=== PATIENT | female | born 1935 | race Caucasian/White ===

== ENCOUNTER → 2016-11-27 | Outpatient (CLI) | payer OTHER ==
[2016-07-10 15:53] VITALS: BP 148/57
--- NOTE | 2016-11-28 08:35 | MG ---
Examination: Bilateral screening mammogram. Clinical history: Routine screening. Technique: Digital CC and MLO views of both breasts were obtained. Computer aided detection analysis was performed and used during the interpretation. Comparison: 11/22/2015. Findings: The breasts are extremely dense, reducing the sensitivity of mammography. Innumerable scattered augustina gn-appearing calcifications are present in the breasts bilaterally. A skin mole is present overlying the right breast. No suspicious mass, area of architectural distortion or suspicious cluster of microcalcifications is noted. Impression: 1. No mammographic evidence of malignancy. BI-RADS category 2-benign findings. Recommend routine annual screening mammogram. Diagnostic CAD was utilized and reviewed. * 0 (ZERO) - ASSESSMENT INCOMPLETE; ADDITIONAL IMAGING IS NEEDED. * 0C - ASSESSMENT INCOMPLETE, NEEDS ADDITIONAL IMAGING EVALUATION AND/OR PRIOR MAMMOGRAMS FOR COMPAR RAFAT. * 1/1 (ONE) - NEGATIVE. * 2/II (TWO) - BENIGN FINDINGS. * 3/III (THREE) - PROBABLY BENIGN FINDING; SHORT INTERVAL FOLLOW-UP SUGGESTED. * 4/IV (FOUR) - SUSPICIOUS ABNORMALITY; BIOPSY SHOULD BE CONSIDERED. * 5/V - HIGHLY SUSPICIOUS OF MALIGNANCY; BIOPSY SHOULD BE PERFORMED. * 6/IV - KNOWN BIOPSY PROVEN MALIGNANCY-APPROPRIATE ACTION SHOULD BE TAKEN. A NEGATIVE X-RAY REPORT SHOULD NOT DELAY BIOPSY IF A DOMINANT OR CLINICALLY SUSPICIOUS MASS IS PRESENT; 4 TO 8 PERCENT OF CANCERS ARE NOT IDENTIFIED BY X-RAY. A NEGATIVE REPORT MAY REINFORCE THE CLINICAL IMPRESSION. ADENOSIS AND DENSE BREASTS MAY OBSCURE AN UNDERLYING NEOPLASM. Reported By:
== END ==
LOC: RAD 13:31
PROVIDERS: ATTEND Internal Medicine
DX: Z12.31 Encounter for screening mammogram for malignant neoplasm of breast (principal)
CPT/HCPCS: 77067

== ENCOUNTER 2017-04-02 14:11 | Emergency (ER) | payer OTHER ==
[2017-04-02 14:18] VITALS: BP 125/55; BMI 26.4
[2017-04-02] MEDS ORDERED: DEMEROL INJ IM ONE (15:58)
[2017-04-02] MEDS ORDERED: ZOFRAN INJ 4 MG VIAL IM ONE (15:59)
[2017-04-02] MEDS ORDERED: ZOFRAN INJ 4 MG VIAL ONE (16:01)
[2017-04-02] MEDS ORDERED: DEMEROL INJ ONE (16:02)
--- NOTE | 2017-04-02 16:52 | CT ---
HISTORY: Frequent falls and dizziness Study: CT brain without contrast Comparison: June 07, 2015 Technique: Multiple axial images of the brain were obtained from the skull base to the vertex without administra tion of IV contrast. Sagittal and coronal reformations were provided. Findings: There is no interval change. There are prominent subarachnoid spaces. No acute intraparenchymal hemorrhage or mass can be identified. No extra-axial fluid collections are seen. No alteration in the attenuation of the brain parenchyma can be identified to suggest acute o r subacute ischemic change. The ventricular system is symmetric and nondilated. The extracranial st ructures are grossly unremarkable. The mastoid air cells are clear as well as the paranasal sinuses. IMPRESSION: 1. No acute intracranial process can be identified. Reported By:
--- NOTE | 2017-04-02 17:15 | DR.GENAD ---
HPI - PCP Primary Care Physician: renzo kennedy - Complaint/Symptoms Chief Complaint:: patient stated she has had a head ache since yesterday and it has been bad. her doctor told her to come to the er. patient stated she has taken tylenol and tramodol and it has not helped her headache. - Source History Provided: Patient - Mode of Arrival Mode of Arrival: Ambulatory - Timing Onset of Chief Complaint: 04/01/17 PMH - PMH Past Medical History: Yes Past Medical History: Arthritis, Depression, Diabetes, Dyslipidemia, GERD, Gout , Headaches, Hypertension, Kidney Stones Past Surgical History: Yes Surgical History: Cholecystectomy, Hysterectomy, Ortho Surgery, Thyroidectomy - Family History History of Family Medical Conditions: Yes Family Medical History: Cancer, Heart Failure - Social History Does patient currently use any type of tobacco product: No Have you used tobacco products in the last 12 months: No Type of Tobacco Use: None Does any household member use tobacco: No Alcohol Use: None Do you use any recreational Drugs:: No Lives With: Family Lives Where: Home - infectious screening In the last 2 months have you had wt loss of >10#?: NO Have you had fever, night sweats or hemotysis?: No Have you traveled outside the country in the last 6 months?: No Isolation: Standard ROS - Review of Systems Eyes: No Symptoms Reported ENTM: No Symptoms Reported Respiratoy: No Symptoms Reported Cardiovascular: No Symptoms Reported Gastrointestinal/Abdominal: No Symptoms Reported Genitourinary: No Symptoms Reported Neurological: No Symptoms Reported Musculoskeletal: No Symptoms Reported Integumentary: No Symptoms Reported Hematologic/Lymphatic: No Symptoms Reported Endocrine: No Symptoms Reported Psychiatric: No Symptoms Reported All Other Systems: Reviewed and Negative PE - Vital Signs Vitals: Temperature 98.7 F Pulse Rate 65 Respiratory Rate 18 Blood Pressure [Left Arm] 190/78 Blood Pressure 125/55 O2 Sat by Pulse Oximetry 99 - General General Appearance: Alert, In No Apparent Distress - Head Head Exam: Normal Inspection, Atraumatic - Eyes Eye exam: Normal Appearance, PERRL, EOMI - ENT ENT Exam: Normal Exam External Ear Exam: Normal External Inspection TM/Canal Exam: Bilateral Normal Nose Exam: Normal Nose Exam Mouth Exam: Normal Inspection Throat Exam: Normal Inspection - Neck Neck Exam: Normal Inspection - Chest Chest Inspection: Normal Inspection - Respiratory Respiratory Exam: Normal Lung Sounds Bilat Respiratory Exam: Bilateral Clear to Auscultation - Cardiovascular Cardiovascular Exam: Regular Rate - Abdominal Exam Abdominal Exam: Normal Inspection Abdominal Tenderness: negative: RUQ, RLQ, LUQ, LLQ, Epigastrium, Suprapubic, Diffuse, Mild, Moderate, Severe, Other - Extremities Extremities Exam: Normal Inspection, Full ROM - Back Back Exam: Normal Inspection, Full ROM - Neurologic Neurological Exam: Alert, Oriented X3, CN II-XII Intact - Psychiatric Psychiatric Exam: Normal Affect, Normal Mood - Skin Skin Exam: Warm, Dry, Intact Course - Reevaluation 1st: Improved ROR - Labs Reviewed Result Diagrams: 04/02/17 17:45 04/02/17 17:45 Laboratory: WBC 7.8 X10^3/uL (3.6-10.0) 04/02/17 17:45 RBC 4.42 X10^6/uL (3.5-5.4) 04/02/17 17:45 Hgb 13.9 g/dL (12.0-16.0) 04/02/17 17:45 Hct 40.7 % (36.0-47.0) 04/02/17 17:45 MCV 92.1 fL (80.0-100.0) 04/02/17 17:45 MCH 31.3 pg (27.0-34.0) 04/02/17 17:45 MCHC 34.0 g/dL (33.0-35.0) 04/02/17 17:45 RDW 14.0 % (11.6-16.5) 04/02/17 17:45 Plt Count 142 X10^3/uL (150.0-450.0) L 04/02/17 17:45 Plt Count Comment Adequate (ADEQUATE) 04/02/17 17:45 MPV 8.3 fL (7.4-11.0) 04/02/17 17:45 Neut % 48.1 % (42.0-75.0) 04/02/17 17:45 Lymph % 33.9 % (21.0-51.0) 04/02/17 17:45 [place] % 12.1 % (0.0-13.0) 04/02/17 17:45 Eos % 5.3 % (0.9-2.9) H 04/02/17 17:45 Baso % 0.6 % (0.2-1.0) 04/02/17 17:45 Neut # 3.4 x10^3/uL (2.2-4.8) 04/02/17 17:45 Lymph # 2.4 X10^3/uL (1.3-2.9) 04/02/17 17:45 [place] # 0.9 x10^3/uL (0.3-0.8) H 04/02/17 17:45 Eos # 0.4 x10^3/uL (0.0-0.2) H 04/02/17 17:45 Baso # 0.0 X10^3/uL (0.0-0.1) 04/02/17 17:45 Absolute Nucleated RBC 0.1 /100WBC 04/02/17 17:45 Plt Morphology Comment Normal (NORMAL) 04/02/17 17:45 RBC Morphology Normal (NORMAL) 04/02/17 17:45 Sodium 140 mmol/L (136-145) 04/02/17 17:45 Corrected Sodium TNP 04/02/17 17:45 Potassium 4.4 mmol/L (3.5-5.1) 04/02/17 17:45 Chloride 104 mmol/L (98-107) 04/02/17 17:45 Carbon Dioxide 27.4 mmol/L (21-32) 04/02/17 17:45 BUN 30 mg/dL (7-18) H 04/02/17 17:45 Creatinine 1.12 mg/dL (0.55-1.02) H 04/02/17 17:45 Est GFR (MDRD) Af Amer > 60 (>60) 04/02/17 17:45 Est GFR (MDRD) Non-Af 50 (>60) L 04/02/17 17:45 Glucose 91 mg/dL (65-99) 04/02/17 17:45 Calcium 9.2 mg/dL (8.5-10.1) 04/02/17 17:45 - XRAY XRAY Interpreted by: Radiologist (CT Brain: No acute abnormality noted) - Diagnosis Discharge Problem: Headache Qualifiers: Headache type: unspecified Headache chronicity pattern: acute headache Intractability: not intractable Qualified Code(s): R51 - Headache - Discharge Plan Condition: Stable Prescriptions: Tramadol HCl 50 mg PO Q4-6H PRN #14 tablet PRN Reason: - Follow ups/Referrals Follow ups/Referrals: DUGLAS KENNEDY [Primary Care Provider] - 3 days - Instructions Instructions: Headache and Arthritis
[2017-04-02 18:01] LABS: BASOPHILS % (AUTO) 0.6 % (0.2-1.0); EOSINOPHILS # (AUTO) 0.4 x10^3/uL (0.0-0.2); EOSINOPHILS % (AUTO) 5.3 % (0.9-2.9); HEMATOCRIT 40.7 % (36.0-47.0); HEMOGLOBIN 13.9 g/dL (12.0-16.0); LYMPHOCYTES # (AUTO) 2.4 X10^3/uL (1.3-2.9); LYMPHOCYTES % (AUTO) 33.9 % (21.0-51.0); MEAN CORPUSCULAR HEMOGLOBIN 31.3 pg (27.0-34.0); MEAN CORPUSCULAR VOLUME 92.1 fL (80.0-100.0); MEAN PLATELET VOLUME 8.3 fL (7.4-11.0); MONOCYTES # (AUTO) 0.9 x10^3/uL (0.3-0.8); MONOCYTES % (AUTO) 12.1 % (0.0-13.0); NEUTROPHILS # (AUTO) 3.4 x10^3/uL (2.2-4.8); NEUTROPHILS % (AUTO) 48.1 % (42.0-75.0); PLATELET COUNT 142 X10^3/uL (150.0-450.0); RED BLOOD COUNT 4.42 X10^6/uL (3.5-5.4)
[2017-04-02] MEDS ORDERED: ULTRAM PO ONE (18:02)
[2017-04-02] MEDS ORDERED: ULTRAM ONE (18:03)
[2017-04-02 18:05] LABS: BLOOD UREA NITROGEN 30 mg/dL (7-18); CALCIUM 9.2 mg/dL (8.5-10.1); CARBON DIOXIDE 27.4 mmol/L (21-32); CHLORIDE 104 mmol/L (98-107); CREATININE 1.12 mg/dL (0.55-1.02); SODIUM 140 mmol/L (136-145); eGFR BLACK RACES > 60 (>60); eGFR NON BLACK RACES 50 (>60)
[2017-04-02 18:32] LABS: WHITE BLOOD COUNT 7.8 X10^3/uL (3.6-10.0)
[2017-04-02 18:33] LABS: PLATELET MORPHOLOGY COMMENT NORMAL (NORMAL)
== END 2017-04-02 18:45 | disposition home or self-care (01) ==
LOC: ER 14:22
DX: R51 Headache (principal)
CPT/HCPCS: 36415; 70450; 80048; 85025; 96372; 99283; J2175; J2405

== ENCOUNTER 2019-05-24 10:26 | Observation (INO) ==
[2019-05-24 10:40] VITALS: BMI 25.8
--- NOTE | 2019-05-24 10:55 | ED.ABDFE ---
HPI - PCP Primary Care Physician: MUNA BELLO CREW CHIEF - Complaint Chief Complaint Doctors Comments: Patient is complaining of LUQ pain that goes to her back and upper stomach for the past 24 hours getting progressively worst. Patient states she tried to take the pain at home but it got worst this morning with the pain 9 of 10. She is a patient of Muna Bello and states she sees a cardi ologist because she wants all her patients to go to a mlt. Patient denies problems with her heart. States she fell and bruised her left lower leg few weeks ago. she has had a cough but it is not productive. she denies dysuria, hematuria or any recent trauma. states she injured her left leg and she is going to wound care for her left leg and they say it is healing well without infection. Chief Complaint:: PT C/O PAIN TO HER LEFT AXILLA THAT STARTED ON 03/23/19 AND THAN THIS AM THE PAIN STARTED TO RADIATE TO HER L, AND R UPPE QUAD ,, PT DENIES ANY TRAUMA ,,BR - Nurses notes reviewed Nurses Notes Review: Yes - Source History Provided: Patient - Mode of arrival Mode of Arrival: Ambulatory - Timing Onset of Chief Complaint: 05/23/19 Came on: Gradually - Duration Duration: Constant How lon Duration: Days - Location Location: LUQ, Epigastric - Severity Severity: Moderate - Quality Quality: Aching, Sharp - Context Onset: Gradually - Modifying Worsening Factors: Nothing Improving Factors: Nothing - Associated signs and symptoms Associated Signs and Symptoms: None - Time seen Time Seen by Provider: 05/24/19 10:52 PMH - PMH Past Medical History: Yes Past Medical History: Hypertension, Diabetes, Hypothyroidism Past Surgical History: Yes Surgical History: Cholecystectomy, Hysterectomy, Thyroidectomy, Unknown - Family History History of Family Medical Conditions: Yes Family Medical History: Cancer, Hypertension - Social History Does patient currently use any type of tobacco product: No Have you used tobacco products in the last 12 months: No Type of Tobacco Use: None Does any household member use tobacco: No Alcohol Use: None Do you use any recreational Drugs:: No Lives With: Family Lives Where: Home - infectious screening In the last 2 months have you had wt loss of >10#?: NO Have you had fever, night sweats or hemotysis?: No Have you traveled outside the country in the last 6 months?: No Isolation: Standard PE - General Limitations: No Limitations General Appearance: Alert, In Distress (moderate to severe) - Head Head Exam: Normal Inspection, Atraumatic, Normocephalic - Eyes Eye exam: Normal Appearance, PERRL, EOMI. negative: Scleral Icterus, Conjunctival Injection, Nystagmus, Miosis, Mydrasis, Periorbital Swelling, Periorbital Tenderness, Other - ENT ENT Exam: Normal Exam, Normal Oropharynx, Normal External Ear Exam, Mucous Membranes Moist (dentures), TM's Normal Bilaterally - Neck Neck Exam: Normal Inspection, Full ROM, Trachea Midline. negative: Tenderness, Meningismus, Lymphadenopathy, Thyromegaly, Other - Chest Chest Inspection: Normal Inspection, Symmetric Chest Wall Rise. negative: Tenderness, Rash, Abscess, Other - Respiratory Respiratory Exam: Normal Lung Sounds Bilat Respiratory Exam: Bilateral Clear to Auscultation - Cardiovascular Cardiovascular Exam: Irregular Rhythm, Normal Heart Sounds, Systolic Murmur - Abdominal Exam Abdominal Exam: Normal Inspection, Normal Bowel Sounds, Soft, Tenderness (epigastric tenderness), Guarding, Dimnished Bowel Sounds Abdominal Tenderness: LUQ, Epigastrium, Moderate - Rectal Rectal Exam: Deferred - Back Back Exam: Normal Inspection, Full ROM. negative: Tenderness, (R) CVA Tenderness, (L) CVA Tenderness, Muscle Spasm, Paraspinal Tenderness, Vertebral Tenderness, Rashes, (R) Sciatic Notch Tenderness, (L) Sciatic Notch Tendern, (R) Straight Leg Raise, (L) Straight Leg Raise, Other - Extremeties Extremities Exam: Normal Inspection, Full ROM, Normal Capillary Refill. negative: Tenderness, Edema, Joint Swelling, Calf Tenderness, Other - External Exam: Female: Deferred : Speculum Exam (Female): Deferred : Bimanual Exam (female): Deferred - Neurologic Neurological Exam: Alert, Oriented X3, CN II-XII Intact, Reflexes Normal. negative: Normal Gait (gait not tested) - Psychiatric Psychiatric Exam: Normal Affect, Normal Mood. negative: Depressed, Agitated, Anxious, Flat Affect, Manic, Homicidal Ideation, Suicidal Ideation, Other - Skin Skin Exam: Warm, Dry, Intact, Normal Color - Vital Signs Vitals: Temperature 97.2 F Pulse Rate 64 Respiratory Rate 33 Blood Pressure [Left Arm] 128/87 Blood Pressure 178/77 O2 Sat by Pulse Oximetry 97 Course - Reevaluation 1st: Improved - Consultation Called: 14:24 Call Returned: 14:24 (Dr. Morris to admit) - Education/Counseling Education/Counseling: Patient, Family Educated On: Treatment, Diagnosis, Needs for Follow Up ROR - Labs Reviewed Laboratory Results Reviewed?: Yes (All labs and x-ray results reviewed and discussed with patient and family) Result Diagrams: 05/24/19 11:27 05/24/19 11:27 - XRAY XRAY Interpreted by: Radiologist (CT abdomen and pelvis: Small left plelural effusion. Right basilar atelectasis. No acute abdominal or pelvis abnormality) - Labs Reviewed Laboratory: WBC 8.8 X10^3/uL (3.6-10.0) 05/24/19 11:27 RBC 3.76 X10^6/uL (3.5-5.4) 05/24/19 11:27 Hgb 12.6 g/dL (12.0-16.0) 05/24/19 11:27 Hct 36.3 % (36.0-47.0) 05/24/19 11:27 MCV 96.5 fL (80.0-100.0) 05/24/19 11:27 MCH 33.6 pg (27.0-34.0) 05/24/19 11:27 MCHC 34.8 g/dL (33.0-35.0) 05/24/19 11:27 RDW 14.7 % (11.6-16.5) 05/24/19 11:27 Plt Count 266 X10^3/uL (150.0-450.0) 05/24/19 11:27 MPV 8.1 fL (7.4-11.0) 05/24/19 11:27 Neut % (Auto) 74.6 % (42.0-75.0) 05/24/19 11:27 Lymph % (Auto) 14.0 % (21.0-51.0) L 05/24/19 11:27 [place] % (Auto) 10.2 % (0.0-13.0) 05/24/19 11:27 Eos % (Auto) 0.6 % (0.9-2.9) L 05/24/19 11:27 Baso % (Auto) 0.6 % (0.2-1.0) 05/24/19 11:27 Neut # (Auto) 6.6 x10^3/uL (2.2-4.8) H 05/24/19 11:27 Lymph # (Auto) 1.2 X10^3/uL (1.3-2.9) L 05/24/19 11:27 [place] # (Auto) 0.9 x10^3/uL (0.3-0.8) H 05/24/19 11:27 Eos # (Auto) 0.0 x10^3/uL (0.0-0.2) 05/24/19 11:27 Baso # (Auto) 0.1 X10^3/uL (0.0-0.1) 05/24/19 11:27 Absolute Nucleated RBC 0.1 /100WBC 05/24/19 11:27 PT 13.1 SECONDS (11.8-14.3) 05/24/19 11:27 INR Target Range - 05/24/19 11:27 INR 1.03 (0.8-1.3) 05/24/19 11:27 APTT 33.5 SECONDS (22.9-36.5) 05/24/19 11:27 PTT Comment - 05/24/19 11:27 D-Dimer 613 ng/mL (0-400) H* 05/24/19 11:27 Sodium 135 mmol/L (136-145) L 05/24/19 11:27 Corrected Sodium 138 mmol/L (136-145) 05/24/19 11:27 Potassium 4.4 mmol/L (3.5-5.1) 05/24/19 11:27 Chloride 97 mmol/L (98-107) L 05/24/19 11:27 Carbon Dioxide 32.2 mmol/L (21-32) H 05/24/19 11:27 BUN 27 mg/dL (7-18) H 05/24/19 11:27 Creatinine 1.15 mg/dL (0.55-1.02) H 05/24/19 11:27 Est GFR (MDRD) Af Amer 58 (>60) L 05/24/19 11:27 Est GFR (MDRD) Non-Af 48 (>60) L 05/24/19 11:27 Glucose 225 mg/dL (65-99) H 05/24/19 11:27 Calcium 9.3 mg/dL (8.5-10.1) 05/24/19 11:27 Corrected Calcium TNP 05/24/19 11:27 Magnesium 1.9 mg/dL (1.7-2.9) 05/24/19 11:27 Total Bilirubin 0.40 mg/dL (0.2-1.0) 05/24/19 11:27 AST 12 Units/L (15-37) L 05/24/19 11:27 ALT 6 Units/L (12-78) L 05/24/19 11:27 Alkaline Phosphatase 162 Units/L (46-116) H 05/24/19 11:27 Creatine Kinase 38 Units/L (26-192) 05/24/19 11:27 CK-MB (CK-2) < 1.0 ng/mL (0-4.0) 05/24/19 11:27 CK/CKMB % Calc 2.6 % (<4) 05/24/19 11:27 Troponin I < 0.02 ng/mL (0-1.5) 05/24/19 11:27 B-Natriuretic Peptide 190 pg/mL (0-79) H 05/24/19 12:15 Total Protein 7.3 g/dL (6.4-8.2) 05/24/19 11:27 Albumin 3.7 g/dL (3.4-5.0) 05/24/19 11:27 Globulin 3.6 g/dL (2.5-4.5) 05/24/19 11:27 Albumin/Globulin Ratio 1.0 Ratio (1.1-2.1) L 05/24/19 11:27 Amylase 39 Units/L (25-115) 05/24/19 11:27 Lipase 72 Units/L (73-393) L 05/24/19 11:27 Opioid - Opioid Risk Tool Age (Enrique box if 16-45): No History of Preadolescent Sexual Abuse: No Total: 0 Total Score Risk Category: Low Risk - Diagnosis Discharge Problem: Intractable abdominal pain, Chest pain in adult, Pleural effusion, left, Cardiomegaly, Interstitial edema Diabetes mellitus type 1, uncontrolled Qualifiers: Glycemic state: with hyperglycemia Qualified Code(s): E10.65 - Type 1 diabetes mellitus with hyperglycemia Chronic kidney disease (CKD) Qualifiers: Chronic kidney disease stage: stage 3 (moderate) Qualified Code(s): N18.3 - Chronic kidney disease, stage 3 (moderate) Cardiac arrhythmia Qualifiers: Arrhythmia type: atrial fibrillation Blister of left lower leg Qualifiers: Encounter type: subsequent encounter Qualified Code(s): S80.822D - Blister (nonthermal), left lower leg, subsequent encounter - Discharge Plan Disposition: ADMITTED INPATIENT Condition: Stable - Follow ups/Referrals Follow ups/Referrals: DUGLAS BELLO [Primary Care Provider] - 3 days - Instructions
[2019-05-24] MEDS ORDERED: ASPIRIN PO ONE (11:08)
[2019-05-24] MEDS ORDERED: NS 1000 ML 1,000 ML ONE (11:12)
[2019-05-24] MEDS ORDERED: ASPIRIN ONE (11:12)
[2019-05-24] MEDS: NS 1000 ML 1,000 ML IV SCH (11:30)
[2019-05-24 11:49] LABS: BASOPHILS # (AUTO) 0.1 X10^3/uL (0.0-0.1); BASOPHILS % (AUTO) 0.6 % (0.2-1.0); EOSINOPHILS % (AUTO) 0.6 % (0.9-2.9); HEMATOCRIT 36.3 % (36.0-47.0); HEMOGLOBIN 12.6 g/dL (12.0-16.0); LYMPHOCYTES # (AUTO) 1.2 X10^3/uL (1.3-2.9); MEAN CORPUSCULAR HEMOGLOBIN 33.6 pg (27.0-34.0); MEAN CORPUSCULAR HGB CONC 34.8 g/dL (33.0-35.0); MEAN CORPUSCULAR VOLUME 96.5 fL (80.0-100.0); MEAN PLATELET VOLUME 8.1 fL (7.4-11.0); MONOCYTES # (AUTO) 0.9 x10^3/uL (0.3-0.8); MONOCYTES % (AUTO) 10.2 % (0.0-13.0); NEUTROPHILS # (AUTO) 6.6 x10^3/uL (2.2-4.8); NEUTROPHILS % (AUTO) 74.6 % (42.0-75.0); PLATELET COUNT 266 X10^3/uL (150.0-450.0); RED BLOOD COUNT 3.76 X10^6/uL (3.5-5.4); RED CELL DISTRIBUTION WIDTH 14.7 % (11.6-16.5); WHITE BLOOD COUNT 8.8 X10^3/uL (3.6-10.0)
[2019-05-24] MEDS ORDERED: MORPHINE SULFATE INJ 2 MG INJ IVP ONE (11:54)
[2019-05-24] MEDS ORDERED: ZOFRAN INJ 4 MG VIAL IVP ONE (11:55)
[2019-05-24] MEDS ORDERED: ZOFRAN INJ 4 MG VIAL ONE (11:56)
[2019-05-24] MEDS ORDERED: MORPHINE SULFATE INJ 2 MG INJ ONE (11:57)
[2019-05-24 12:42] LABS: BLOOD UREA NITROGEN 27 mg/dL (7-18); CALCIUM 9.3 mg/dL (8.5-10.1); CARBON DIOXIDE 32.2 mmol/L (21-32); CHLORIDE 97 mmol/L (98-107); COR NA(FOR HYPERGLY) 138 mmol/L (136-145); CREATININE 1.15 mg/dL (0.55-1.02); SODIUM 135 mmol/L (136-145); TROPONIN I < 0.02 ng/mL (0-1.5); eGFR NON BLACK RACES 48 (>60)
[2019-05-24 12:46] LABS: ALANINE AMINOTRANSFERASE 6 Units/L (12-78); ALBUMIN 3.7 g/dL (3.4-5.0); ALKALINE PHOSPHATASE 162 Units/L (46-116); AMYLASE 39 Units/L (25-115); ASPARTATE AMINO TRANSFERASE 12 Units/L (15-37); CKMB % 2.6 % (<4); CREATINE KINASE 38 Units/L (26-192); CREATINE KINASE MB < 1.0 ng/mL (0-4.0); LIPASE 72 Units/L (73-393); MAGNESIUM 1.9 mg/dL (1.7-2.9); TOTAL PROTEIN 7.3 g/dL (6.4-8.2)
--- NOTE | 2019-05-24 13:19 | RAD ---
HISTORYChest pain.STUDYCHEST, 1 VIEWCOMPARISONJuly 2017.FINDINGSThe trachea is midline. The cardiac silhouette is enlarged. There is some central pulmonary vascular congestion. There may be some mild perihilar and infrahilar interstitial prominence suggestive of mild interstitial edema. The lungs are clear of consolidation, significant effusion or pneumothorax. The bony thorax is unremarkable.IMPRESSIONCardiomegaly with central pulmonary vascular congestion and mild interstitial edema.Electronically signed by: DARYN NIEVES (May 24, 2019 13:18:12)
--- NOTE | 2019-05-24 13:30 | CT ---
HISTORYLUQ PAIN; LEFT CVA PAIN HTN, DM, CHOLECYSTECTOMY, HYSTERECTOMY, THYROIDECTOMYSTUDYABDOMEN/PELVIS W/O CONCOMPARISONNone.TECHNIQUEMultiple axial images of the abdomen and pelvis were obtained from the lung bases to the pubic symphysis without the administration of IV contrast. Sagittal and coronal reformatted images were performed. Automated exposure control (AEC) was utilized to adjust the MA and/or kV.FINDINGSThere is a small left-sided pleural effusion. There is adjacent compressive atelectasis or airspace opacity in the left lower lobe. There is atelectasis in the right lower lobe.CT abdomen: Several calcified granulomas are noted in the liver. The pancreas is normal in appearance without evidence for mass, cyst or significant pancreatic duct dilation. There is no significant peripancreatic inflammatory stranding. The gallbladder is surgically absent. Surgical clips are noted in the gallbladder fossa. Both adrenal glands are normal in appearance. There is no evidence of nephrolithiasis or hydronephrosis.The stomach is normal in appearance. The small bowel is normal in appearance, without evidence of bowel wall thickening or small bowel obstruction. The terminal ileum and cecum are normal. The appendix is normal in appearance. The ascending and transverse colon are within normal limits. The descending colon is normal in appearance.CT pelvis: The sigmoid colon is normal in appearance. The rectum is normal. The urinary bladder is normal. No abnormal fluid collections are identified in the pelvis.IMPRESSION1. No evidence of acute abdominal or pelvic abnormality.2. Small left pleural effusion with adjacent airspace disease versus atelectasis. Right basilar atelectasis.Electronically signed by: DARYN NIEVES (May 24, 2019 13:28:36)
[2019-05-24] MEDS ORDERED: LASIX IVP STA (13:57)
[2019-05-24] MEDS ORDERED: LASIX ONE (14:11)
[2019-05-24] MEDS ORDERED: PEPCID 20 MG IV PREMIX* 20 MG/50 ML BAG IV PRN (14:27)
[2019-05-24] MEDS ORDERED: MORPHINE SULFATE INJ 2 MG INJ IVP PRN (14:27)
[2019-05-24] MEDS ORDERED: ZOFRAN INJ 4 MG VIAL IVP PRN (14:27)
[2019-05-24] MEDS ORDERED: VITAMIN D (1.25MG) PO SCH (14:30)
[2019-05-24] MEDS ORDERED: HumuLIN R SUBCUT PRN (14:46)
[2019-05-24 15:29] LABS: BILIRUBIN,URINE NEGATIVE (NEGATIVE); BLOOD/HEMOGLOBIN,URINE 1+ (NEGATIVE); GLUCOSE, URINE NEGATIVE (NEGATIVE); KETONES,URINE NEGATIVE (NEGATIVE); LEUKOCYTE ESTERASE ,URINE NEGATIVE (NEGATIVE); NITRITES,URINE NEGATIVE (NEGATIVE); PROTEIN,URINE 1+ (NEGATIVE); UROBILINOGEN,URINE NORMAL (NORMAL)
[2019-05-24 15:39] LABS: APPEARANCE,URINE CLEAR (CLEAR); COLOR,URINE YELLOW (YELLOW); SQUAMOUS EPITHELIAL CELL,UR FEW /HPF (NEGATIVE)
[2019-05-24 15:40] LABS: BACTERIA,URINE NEGATIVE /HPF (NEGATIVE)
[2019-05-24] MEDS ORDERED: BACTROBAN TOPICAL OINT ONE (15:54)
[2019-05-24] MEDS: BACTROBAN TOPICAL OINT TOP SCH ×2 (17:00→20:31)
[2019-05-24 17:22] LABS: CKMB % 3.1 % (<4); CREATINE KINASE 32 Units/L (26-192); CREATINE KINASE MB < 1.0 ng/mL (0-4.0); TROPONIN I < 0.02 ng/mL (0-1.5)
[2019-05-24] MEDS ORDERED: SNACK - Diabetic Appropriate PO SCH (20:00)
[2019-05-24] MEDS: TAMBOCOR PO SCH (20:28)
[2019-05-24] MEDS: SINEMET CR 50/200 MG PO SCH (21:00)
[2019-05-24] MEDS: MYSOLINE TAB 250 MG PO SCH (21:00)
[2019-05-24] MEDS: AMANTADINE HCL 100 MG CAP PO SCH (21:25)
[2019-05-25] LABS: CKMB % 4.2 % (<4); CREATINE KINASE 24 Units/L (26-192); CREATINE KINASE MB < 1.0 ng/mL (0-4.0); TROPONIN I < 0.02 ng/mL (0-1.5)
[2019-05-25] MEDS: NS 1000 ML 1,000 ML IV SCH (03:00)
[2019-05-25] MEDS: MYSOLINE TAB 250 MG PO SCH (05:46)
[2019-05-25] MEDS: SINEMET CR 50/200 MG PO SCH (05:47)
[2019-05-25 06:07] LABS: BASOPHILS % (AUTO) 0.6 % (0.2-1.0); EOSINOPHILS # (AUTO) 0.1 x10^3/uL (0.0-0.2); EOSINOPHILS % (AUTO) 1.8 % (0.9-2.9); HEMATOCRIT 32.9 % (36.0-47.0); HEMOGLOBIN 11.3 g/dL (12.0-16.0); LYMPHOCYTES # (AUTO) 1.3 X10^3/uL (1.3-2.9); LYMPHOCYTES % (AUTO) 20.6 % (21.0-51.0); MEAN CORPUSCULAR HGB CONC 34.3 g/dL (33.0-35.0); MEAN CORPUSCULAR VOLUME 96.1 fL (80.0-100.0); MEAN PLATELET VOLUME 7.7 fL (7.4-11.0); MONOCYTES # (AUTO) 0.8 x10^3/uL (0.3-0.8); MONOCYTES % (AUTO) 12.4 % (0.0-13.0); NEUTROPHILS # (AUTO) 4.2 x10^3/uL (2.2-4.8); NEUTROPHILS % (AUTO) 64.6 % (42.0-75.0); PLATELET COUNT 210 X10^3/uL (150.0-450.0); RED BLOOD COUNT 3.43 X10^6/uL (3.5-5.4); RED CELL DISTRIBUTION WIDTH 14.2 % (11.6-16.5); WHITE BLOOD COUNT 6.5 X10^3/uL (3.6-10.0)
[2019-05-25 06:24] LABS: ALANINE AMINOTRANSFERASE < 6 Units/L (12-78); ALBUMIN 2.8 g/dL (3.4-5.0); ALKALINE PHOSPHATASE 116 Units/L (46-116); ASPARTATE AMINO TRANSFERASE 10 Units/L (15-37); BLOOD UREA NITROGEN 22 mg/dL (7-18); CALCIUM 8.5 mg/dL (8.5-10.1); CARBON DIOXIDE 29.5 mmol/L (21-32); CHLORIDE 100 mmol/L (98-107); COR CA(FOR HYPOALB) 9.5 mg/dL (8.5-10.1); COR NA(FOR HYPERGLY) 137 mmol/L (136-145); CREATININE 0.99 mg/dL (0.55-1.02); SODIUM 136 mmol/L (136-145); TOTAL PROTEIN 5.9 g/dL (6.4-8.2); eGFR NON BLACK RACES 57 (>60)
[2019-05-25] MEDS ORDERED: SYNTHROID 100 mcg TAB PO SCH (07:00)
[2019-05-25] MEDS: TAMBOCOR PO SCH (08:48)
[2019-05-25] MEDS: AMANTADINE HCL 100 MG CAP PO SCH (08:48)
[2019-05-25] MEDS ORDERED: PATIENT'S HOME MEDICATION (Valsartan-Hydrochlorothiazide 1 TAB) PO SCH (09:00)
[2019-05-25] MEDS ORDERED: LEVOTHYROXINE 200 MCG PO SCH (09:00)
[2019-05-25] MEDS ORDERED: ROCEPHIN VIAL 1 GRAM 1 G in NS 100 ML IV + SPIKE MINIBAG* 100 ML IV SCH (09:00)
[2019-05-25] MEDS ORDERED: HYDROCHLOROTHIAZIDE 12.5 MG CAP PO SCH (09:00)
[2019-05-25] MEDS ORDERED: VITAMIN D (1.25MG) PO SCH (09:00)
[2019-05-25] MEDS ORDERED: DIOVAN TAB 80 MG PO SCH (09:00)
[2019-05-25] MEDS: BACTROBAN TOPICAL OINT TOP SCH (09:23)
[2019-05-25 11:35] VITALS: BP 153/65
--- NOTE | 2019-06-02 11:49 | DR.CARTERS ---
Short Stay Summary - Admission Date Date of Admission: 05/24/19 - Discharge Date Discharge Date: 05/25/19 - Admission Diagnoses (1) Intractable abdominal pain Status: Acute (2) Chest pain in adult Status: Acute (3) Diabetes mellitus type 1, uncontrolled Status: Acute (4) Weakness Status: Acute - Hospital Course Hospital Course: IS A 84 YEAR OLD PATIENT OF OURS WHO PRESENTED TO THE ER WITH COMPLAINTS OF LUQ PAIN THAT RADIATED TO THE BACK AND UPPER STOMACH X 24 HOURS PRIOR TO ARRIVAL. SHE ALSO REPORTED LEFT AXILLA PAIN. SHE REPORTED FALLING IN THE YARD TWO WEEKS PRIOR AND OBTAINING SKIN TEARS AND BRUISES TO THE LEFT LEG. ON ARRIVAL, VITALS WERE 97.2-67-20-97%-192/81. LABS WERE OBTAINED. ABNORMAL LAB VALUES INCLUDED THE FOLLOWING: D-DIMER 613, SODIUM 135, CHLORIDE 97, CARBON DIOXIDE 32.2, BUN 27, CREATININE 1.15, GLUCOSE 225, AST 12, ALT 6, ALK PHOS 162, BNP 190, LIPASE 72. CARDIAC ENZYMES WERE WITHIN NORMAL LIMITS. A CHEST XRAY WAS OBTAINED AND REVEALED: Cardiomegaly with central pulmonary vascular congestion and mild interstitial edema. AN ABDOMEN/PELVIS CT WAS OBTAINED AND REVEALED: 1. No evidence of acute abdominal or pelvic abnormality. 2. Small left pleural effusion with adjacent airspace disease versus atelectasis. Right basilar atelectasis. EKG REVEALED: SINUS RHYTHM WITH HR 63. SHE WAS GIVEN MORPHINE 2MG IV X 1 DOSE, ASA 325MG PO X 1, ZOFRAN 4MG IV X 1, AND STARTED ON NORMAL SALIEN AT 75ML/HR. SHE WAS ADMITTED FOR FURTHER EVALUATION AND TREATMENT OF INTRACTABLE ABDOMINAL PAIN, LEFT AXILLA PAIN, AND CHEST PAIN. OTHERWISE, WE PLANNED TO FOLLOW UP WITH AM LABS AND CONTINUE TO MONITOR. ON THE MORNING FOLLOWING ADMISSION, PATIENT IS ALERT AND ORIENTED, LYING IN BED ON MORNING ROUNDS. SHE CONTINUES WITH COMPLAINTS OF WEAKNESS AND PAIN TO LEFT AND AXILLA/ARM AREA. HER VITALS THIS MORNING ARE: 98.2-67-18-96%-159/71. LABS W ERE OBTAINED. ABNORMAL LAB VALUES INCLUDE THE FOLLOWING: RBC 3.43, HGB 11.3, HCT 32.9, BUN 22, GLUCOSE 134, AST 10, ALT <6, TOTAL PROTEIN 5.9, ALBUMIN 2.8. CARDIAC ENZYMES HAVE BEEN WITHIN NORMAL LIMITS. NO CHANGES TO EKGS. WE PLANNED FOR DISCHARGE. INSTRUCTIONS FOR MEDICATIONS AND FOLLOW UP WERE DISCUSSED WITH PATIENT AND FAMILY. THEY VERBALIZED UNDERSTANDING OF ALL ORDERS. SHE WAS INSTRUCTED TO CONTINUE HER HOME MEDICATIONS AND FOLLOW UP WITH [facility]. PATIENT DISCHARGED HOME WITH FAMILY IN STABLE CONDITION. - Discharge Medications Discharge Medications: Home Medication List amantadine HCl 100 mg PO BID 05/24/19 [History] carbidopa-levodopa 1 tab PO TID 05/24/19 [History] clindamycin HCl 300 mg PO BID 05/24/19 [History] duloxetine 60 mg PO DAILY 05/24/19 [History] ergocalciferol (vitamin D2) [Vitamin D2] 1,250 mcg PO .WEEKLY 05/24/19 [History] flecainide 50 mg PO BID 05/24/19 [History] levothyroxine [Synthroid] 200 mcg PO DAILY 05/24/19 [History] mupirocin 1 applic TOPICAL BID 05/24/19 [History] mv,iron,min-folic acid-biotin [Hair, Skin and Nails-Argan Oil] 1 cap PO DAILY 05/24/19 [History] omeprazole 20 mg PO BID 05/24/19 [History] primidone 250 mg PO TID 05/24/19 [History] rosuvastatin 20 mg PO HS 05/24/19 [History] valsartan-hydrochlorothiazide 1 tab PO DAILY 05/24/19 [History] vitamin E 400 unit PO DAILY 05/24/19 [History] Prescriptions: Prescription drug monitoring program results: PDMP was not reviewed - Discharge Plan Disposition: 01 HOME, SELF-CARE Condition: Stable - Follow up/Referrals Follow up/Referrals: DUGLAS SQUIRES [Primary Care Provider] - 3 days - Instructions Instructions: Type 2 Diabetes Mellitus, Self Care, Adult, [id number], Nausea and Vomiting, Adult, [id number], How to Take Your Blood Pressure, [id number], Hypertension, Inpv-bt-Orae, Managing Your Hypertension Additional Instructions: DIET TOLERATED. ACTIVITY TOLERATED. CONTINUE CLINDAMYCIN AND OINTMENT. Forms: Excuse From Work or School, Patient Portal
== END 2019-05-25 11:45 | disposition home or self-care (01) ==
LOC: MED/SURG 10:33 → ER 10:33 → MED/SURG 15:27
PROVIDERS: ADMIT Internal Medicine; ATTEND Internal Medicine
DX: Z79.899 Other long term (current) drug therapy; E10.65 Type 1 diabetes mellitus with hyperglycemia; N18.3 Chronic kidney disease, stage 3 (moderate); R07.89 Other chest pain; I12.9 Hypertensive chronic kidney disease with stage 1 through stage 4 chronic kidney disease, or unspecified chronic kidney disease; J90 Pleural effusion, not elsewhere classified; R10.84 Generalized abdominal pain; R94.31 Abnormal electrocardiogram [ECG] [EKG]; J98.11 Atelectasis; I11.9 Hypertensive heart disease without heart failure
CPT/HCPCS: 36415; 71010; 71045; 74176; 80053; 81001; 82150; 82550; 82553; 83690; 83735; 83880; 84484; 85025; 85378; 85610; 85730; 93005; 94640; 96360; 96361; 96365; 96367; 96374; 96375; 99284; A4216; A4222; G9017; G0378; J0696; J1940; J2270; J2405; J3490; J7030; J7050

== ENCOUNTER 2019-08-11 16:50 | Inpatient (IN) ==
[2019-08-11] MEDS: NS 1000 ML 1,000 ML IV SCH (17:34)
[2019-08-11 17:59] LABS: BASOPHILS # (AUTO) 0.1 X10^3/uL (0.0-0.1); BASOPHILS % (AUTO) 0.3 % (0.2-1.0); EOSINOPHILS % (AUTO) 0.1 % (0.9-2.9); HEMATOCRIT 36.5 % (36.0-47.0); HEMOGLOBIN 12.3 g/dL (12.0-16.0); LYMPHOCYTES # (AUTO) 0.9 X10^3/uL (1.3-2.9); LYMPHOCYTES % (AUTO) 4.3 % (21.0-51.0); MEAN CORPUSCULAR HEMOGLOBIN 31.8 pg (27.0-34.0); MEAN CORPUSCULAR HGB CONC 33.7 g/dL (33.0-35.0); MEAN CORPUSCULAR VOLUME 94.3 fL (80.0-100.0); MEAN PLATELET VOLUME 8.9 fL (7.4-11.0); MONOCYTES # (AUTO) 2.1 x10^3/uL (0.3-0.8); MONOCYTES % (AUTO) 9.7 % (0.0-13.0); NEUTROPHILS # (AUTO) 18.5 x10^3/uL (2.2-4.8); NEUTROPHILS % (AUTO) 85.6 % (42.0-75.0); PLATELET COUNT 237 X10^3/uL (150.0-450.0); RED BLOOD COUNT 3.87 X10^6/uL (3.5-5.4); WHITE BLOOD COUNT 21.6 X10^3/uL (3.6-10.0)
[2019-08-11 18:08] LABS: ALANINE AMINOTRANSFERASE 8 Units/L (12-78); ALBUMIN 2.5 g/dL (3.4-5.0); ALKALINE PHOSPHATASE 152 Units/L (46-116); ASPARTATE AMINO TRANSFERASE 14 Units/L (15-37); BLOOD UREA NITROGEN 40 mg/dL (7-18); CALCIUM 8.4 mg/dL (8.5-10.1); CARBON DIOXIDE 23.4 mmol/L (21-32); CHLORIDE 92 mmol/L (98-107); COR CA(FOR HYPOALB) 9.6 mg/dL (8.5-10.1); COR NA(FOR HYPERGLY) 132 mmol/L (136-145); CREATININE 2.18 mg/dL (0.55-1.02); LIPASE 53 Units/L (73-393); SODIUM 127 mmol/L (136-145); TOTAL PROTEIN 5.9 g/dL (6.4-8.2); TROPONIN I < 0.02 ng/mL (0-1.5); eGFR NON BLACK RACES 23 (>60)
[2019-08-11 18:10] LABS: BAND NEUTROPHILS % 10 % (0-10); PLATELET MORPHOLOGY COMMENT NORMAL (NORMAL)
[2019-08-11 18:14] LABS: ANISOCYTOSIS SLIGHT
[2019-08-11 20:37] VITALS: BMI 26.4
--- NOTE | 2019-08-11 20:45 | DR.H&P ---
H&P History & Physical for Day of: H&P Date: 08/11/19 Chief Complaint Chief Complaint: Diarrhea, Generalized weakness Allergies Allergies Allergy/AdvReac Type Severity Reaction Status Date / Time Sulfa (Sulfonamide Allergy Verified 08/11/19 17:06 Antibiotics) [SULFA] History of Present Illness History of Present Illness: Pt is a 84 yo f pmhx HTN, DMT2, Hypothyroidisim, presenting as a direct admit from [place], [place] for dehydration. Pt has beco me weak over the past 3-4 days. She is having trouble walking even using her walker she is not getting along well. Pt has been nauseous with a loss of appetite and some vomiting. She has been having diarrhea, that has since just stopped. She has got weaker and weaker since it has stopped. Pt also had cough with sputum production. Past Medical History Past Medical History: Diabetes, Hypertension and Hypothyroidism Past Surgical History Surgical History: Cholecystectomy, Hysterectomy, Ortho Surgery and Thyroidectomy Family History Family Medical History: Cancer and Hypertension Social History Alcohol Use: None Drug Use: None Medications Home Medications: Sulfa (Sulfonamide Antibiotics) [SULFA] Allergy (Verified 08/11/19 17:06) CONTINUE taking the following medications levothyroxine [Synthroid] 25 mcg PO DAILY 08/11/19 [History] metoclopramide HCl 10 mg PO TID 08/11/19 [History] Labs Result Diagrams: 08/12/19 05:38 08/12/19 05:38 Labs: Laboratory WBC 21.6 X10^3/uL (3.6-10.0) H 08/11/19 17:35 RBC 3.87 X10^6/uL (3.5-5.4) 08/11/19 17:35 Hgb 12.3 g/dL (12.0-16.0) 08/11/19 17:35 Hct 36.5 % (36.0-47.0) 08/11/19 17:35 MCV 94.3 fL (80.0-100.0) 08/11/19 17:35 MCH 31.8 pg (27.0-34.0) 08/11/19 17:35 MCHC 33.7 g/dL (33.0-35.0) 08/11/19 17:35 RDW 17.0 % (11.6-16.5) H 08/11/19 17:35 Plt Count 237 X10^3/uL (150.0-450.0) 08/11/19 17:35 Plt Count Comment Adequate (ADEQUATE) 08/11/19 17:35 MPV 8.9 fL (7.4-11.0) 08/11/19 17:35 Neut % (Auto) 85.6 % (42.0-75.0) H 08/11/19 17:35 Lymph % (Auto) 4.3 % (21.0-51.0) L 08/11/19 17:35 [place] % (Auto) 9.7 % (0.0-13.0) 08/11/19 17:35 Eos % (Auto) 0.1 % (0.9-2.9) L 08/11/19 17:35 Baso % (Auto) 0.3 % (0.2-1.0) 08/11/19 17:35 Neut # (Auto) 18.5 x10^3/uL (2.2-4.8) H 08/11/19 17:35 Lymph # (Auto) 0.9 X10^3/uL (1.3-2.9) L 08/11/19 17:35 [place] # (Auto) 2.1 x10^3/uL (0.3-0.8) H 08/11/19 17:35 Eos # (Auto) 0.0 x10^3/uL (0.0-0.2) 08/11/19 17:35 Baso # (Auto) 0.1 X10^3/uL (0.0-0.1) 08/11/19 17:35 Absolute Nucleated RBC 0.0 /100WBC 08/11/19 17:35 Total Counted 100 08/11/19 17:35 Neutrophils % (Manual) 76 % (39-76) 08/11/19 17:35 Band Neutrophils % 10 % (0-10) 08/11/19 17:35 Lymphocytes % (Manual) 8 % (13-43) L 08/11/19 17:35 Monocytes % (Manual) 6 % (4-9) 08/11/19 17:35 Plt Morphology Comment Normal (NORMAL) 08/11/19 17:35 RBC Morphology Abnormal (NORMAL) A 08/11/19 17:35 Anisocytosis Slight A 08/11/19 17:35 Sodium 127 mmol/L (136-145) L 08/11/19 17:35 Corrected Sodium 132 mmol/L (136-145) L 08/11/19 17:35 Potassium 3.9 mmol/L (3.5-5.1) 08/11/19 17:35 Chloride 92 mmol/L (98-107) L 08/11/19 17:35 Carbon Dioxide 23.4 mmol/L (21-32) 08/11/19 17:35 BUN 40 mg/dL (7-18) H 08/11/19 17:35 Creatinine 2.18 mg/dL (0.55-1.02) H 08/11/19 17:35 Est GFR (MDRD) Af Amer 28 (>60) L 08/11/19 17:35 Est GFR (MDRD) Non-Af 23 (>60) L 08/11/19 17:35 Glucose 298 mg/dL (65-99) H 08/11/19 17:35 POC Glucose (mg/dL) 252 mg/dL (65-99) H 08/11/19 20:06 Lactic Acid 3.7 mmol/L (0.4-2.0) H 08/11/19 18:11 Calcium 8.4 mg/dL (8.5-10.1) L 08/11/19 17:35 Corrected Calcium 9.6 mg/dL (8.5-10.1) 08/11/19 17:35 Total Bilirubin 0.40 mg/dL (0.2-1.0) 08/11/19 17:35 AST 14 Units/L (15-37) L 08/11/19 17:35 ALT 8 Units/L (12-78) L 08/11/19 17:35 Alkaline Phosphatase 152 Units/L (46-116) H 08/11/19 17:35 Troponin I < 0.02 ng/mL (0-1.5) 08/11/19 17:35 Total Protein 5.9 g/dL (6.4-8.2) L 08/11/19 17:35 Albumin 2.5 g/dL (3.4-5.0) L 08/11/19 17:35 Globulin 3.4 g/dL (2.5-4.5) 08/11/19 17:35 Albumin/Globulin Ratio 0.7 Ratio (1.1-2.1) L 08/11/19 17:35 Lipase 53 Units/L (73-393) L 08/11/19 17:35 Review of Systems Constitutional: Chills and Weakness; denies Fever Eyes: No Symptoms Reported ENT: No Symptoms Reported Respiratory: Cough and Sputum Cardiovascular: No Symptoms Reported Gastrointestinal: Nausea, Vomiting, Abdominal Pain and Diarrhea Genitourinary: No Symptoms Reported Musculoskeletal: Back Pain Skin: No Symptoms Reported Neurological: No Symptoms Reported Physical Exam Vital Signs: Temperature 98.4 F Pulse Rate [Right Brachial] 82 Respiratory Rate 22 Blood Pressure [Right Arm] 164/71 Blood Pressure [Left Arm] 153/65 O2 Sat by Pulse Oximetry 91 Oriented: Normal Eyes: Normal Ear: Normal Nose: Normal Throat: Normal Respiratory: Diminished Throughout Cardiovascular: Normal : Normal Auscultation: Bowel Sounds: Normal Palpation: Normal Tenderness: RLQ, LLQ and Guarding Skin: Decreased [place] Musculoskeletal: Normal Psychiatric: Normal Mood Description: Calm Speech Pattern: Clear Assessment/Plan (1) Dehydration: Status: Acute Plan: IVF, will get labs to evaluate. F/u results. (2) Weakness: Status: Acute (3) Acute renal failure: Status: Acute (4) Diarrhea: Status: Acute (5) Leukocytosis: Status: Acute Review H&P Reviewed: Yes Patient was examined?: Yes
[2019-08-11] MEDS: HumuLIN R SUBCUT PRN (21:11)
[2019-08-11] MEDS: ROCEPHIN VIAL 1 GRAM 1 G in NS 100 ML IV + SPIKE MINIBAG* 100 ML IV SCH (21:33)
[2019-08-11] MEDS: FLAGYL IV PREMIX 500 MG BAG 500 MG/100 ML BAG IV SCH (22:14)
[2019-08-12] MEDS: FLAGYL IV PREMIX 500 MG BAG 500 MG/100 ML BAG IV SCH ×4 (02:32→20:37)
[2019-08-12] MEDS: NS 1000 ML 1,000 ML IV SCH ×4 (04:01→19:35)
[2019-08-12 05:52] LABS: BASOPHILS # (AUTO) 0.1 X10^3/uL (0.0-0.1); BASOPHILS % (AUTO) 0.4 % (0.2-1.0); EOSINOPHILS # (AUTO) 0.2 x10^3/uL (0.0-0.2); EOSINOPHILS % (AUTO) 1.1 % (0.9-2.9); HEMATOCRIT 34.6 % (36.0-47.0); HEMOGLOBIN 11.9 g/dL (12.0-16.0); LYMPHOCYTES # (AUTO) 1.7 X10^3/uL (1.3-2.9); LYMPHOCYTES % (AUTO) 9.2 % (21.0-51.0); MEAN CORPUSCULAR HEMOGLOBIN 31.7 pg (27.0-34.0); MEAN CORPUSCULAR HGB CONC 34.3 g/dL (33.0-35.0); MEAN CORPUSCULAR VOLUME 92.6 fL (80.0-100.0); MEAN PLATELET VOLUME 8.7 fL (7.4-11.0); MONOCYTES # (AUTO) 1.6 x10^3/uL (0.3-0.8); MONOCYTES % (AUTO) 8.6 % (0.0-13.0); NEUTROPHILS # (AUTO) 15.2 x10^3/uL (2.2-4.8); NEUTROPHILS % (AUTO) 80.7 % (42.0-75.0); PLATELET COUNT 263 X10^3/uL (150.0-450.0); RED BLOOD COUNT 3.74 X10^6/uL (3.5-5.4); RED CELL DISTRIBUTION WIDTH 16.4 % (11.6-16.5); WHITE BLOOD COUNT 18.8 X10^3/uL (3.6-10.0)
[2019-08-12 06:10] LABS: ALBUMIN 2.2 g/dL (3.4-5.0); CALCIUM 8.2 mg/dL (8.5-10.1); CARBON DIOXIDE 23.7 mmol/L (21-32); COR CA(FOR HYPOALB) 9.6 mg/dL (8.5-10.1); CREATININE 1.78 mg/dL (0.55-1.02); TOTAL PROTEIN 5.6 g/dL (6.4-8.2)
[2019-08-12 06:26] LABS: BAND NEUTROPHILS % 5 % (0-10); PLATELET MORPHOLOGY COMMENT NORMAL (NORMAL)
--- NOTE | 2019-08-12 07:03 | RAD ---
HISTORYShortness of breathSTUDYCHEST, 1 [id number] heart is enlarged. No definite congestive heart failure is noted. The abdoulaye are normal. The lungs are generally hyperinflated. Patchy infiltrates are present in the left upper lobe. Follow-up until complete resolution is recommended. The right lung is clear. No pleural effusions are identified. Bony thorax is unremarkable.IMPRESSIONMild cardiomegaly without congestive heart failureHyperinflation consistent with COPD in the appropriate clinical settingPatchy left upper lobe infiltrates likely bronchopneumonia. Follow-up until complete resolution is recommended.Electronically signed by: CLARISSE DOMINGUEZ (Aug 12, 2019 07:01:49)
--- NOTE | 2019-08-12 07:03 | RAD ---
HISTORYNausea, vomiting, diarrheaSTUDYKUBCOMPARISONNoneFINDINGSThe abdominal gas pattern is nonspecific and nonobstructive. No abnormal masses or abnormal calcifications are identified. Regional skeleton is intact.IMPRESSIONUnr emawilly KUBElectronically signed by: CLARISSE DOMINGUEZ (Aug 12, 2019 07:02:32)
[2019-08-12] MEDS: ROCEPHIN VIAL 1 GRAM 1 G in NS 100 ML IV + SPIKE MINIBAG* 100 ML IV SCH (08:46)
--- NOTE | 2019-08-12 11:01 | PCM.PROG ---
Progress Note Progress Note for Day of Date of Exam: 08/12/19 Subjective Subjective: Pt is a 84 yo f admitted for WILI pneumonia, ARF, Dehydration, Generalized weakness. She is feeling a little better today compared to yesterday. Labs/imaging:Wbc:21.6>18.8, Na 132>130, Cr:2.18>1.78, LA 3.7>1.5, CXR: mild cardiomegaly w/o CHF, hyperinflation c/w COPD, Patchy WILI infiltrate likely bronchopneumonia. KUB:unremarkable, UA pending, StoolCx/C.diff pending. Abx:Rocephin+Flagyl. Pt is stave machine tender in lower abdomen, will get CTAP today. Continue to monitor and follow up results. Past Medical Family Social History Past Med/Fam/Surg Hx: No changes since H&P Allergies: Allergies Sulfa (Sulfonamide Antibiotics) [SULFA] Allergy (Verified 08/11/19 17:06) Review of Systems ROS: No change since H&P Vital Signs and I&O's Vital Signs: Temperature 99.5 F Pulse Rate [Right Brachial] 86 Respiratory Rate 20 Blood Pressure [Right Arm] 138/63 Blood Pressure [Left Arm] 153/65 O2 Sat by Pulse Oximetry 98 Intake and Output: Intake & Output 08/09/19 08/10/19 08/11/19 08/12/19 22:59 23:59 23:59 23:59 Intake Total 1295 / 1295 1000 / 1000 Balance 1295 / 1295 1000 / 1000 Physical Exam Oriented: Normal Eyes: Normal Ear: Normal Nose: Normal Throat: Normal Respiratory: Normal Cardiovascular: Normal : Normal Auscultation: Bowel Sounds: Normal Tenderness: RLQ, LLQ and Guarding Skin: Decreased Turgur Musculoskeletal: Normal Psychiatric: Normal Mood Description: Calm Speech Pattern: Clear Laboratory and Diagnostics Result Diagrams: 08/12/19 05:38 08/12/19 05:38 Labs: 08/12/19 09:00 Stool - Final Laboratory WBC 18.8 X10^3/uL (3.6-10.0) H 08/12/19 05:38 RBC 3.74 X10^6/uL (3.5-5.4) 08/12/19 05:38 Hgb 11.9 g/dL (12.0-16.0) L 08/12/19 05:38 Hct 34.6 % (36.0-47.0) L 08/12/19 05:38 MCV 92.6 fL (80.0-100.0) 08/12/19 05:38 MCH 31.7 pg (27.0-34.0) 08/12/19 05:38 MCHC 34.3 g/dL (33.0-35.0) 08/12/19 05:38 RDW 16.4 % (11.6-16.5) 08/12/19 05:38 Plt Count 263 X10^3/uL (150.0-450.0) 08/12/19 05:38 Plt Count Comment Adequate (ADEQUATE) 08/12/19 05:38 MPV 8.7 fL (7.4-11.0) 08/12/19 05:38 Neut % (Auto) 80.7 % (42.0-75.0) H 08/12/19 05:38 Lymph % (Auto) 9.2 % (21.0-51.0) L 08/12/19 05:38 [place] % (Auto) 8.6 % (0.0-13.0) 08/12/19 05:38 Eos % (Auto) 1.1 % (0.9-2.9) 08/12/19 05:38 Baso % (Auto) 0.4 % (0.2-1.0) 08/12/19 05:38 Neut # (Auto) 15.2 x10^3/uL (2.2-4.8) H 08/12/19 05:38 Lymph # (Auto) 1.7 X10^3/uL (1.3-2.9) 08/12/19 05:38 [place] # (Auto) 1.6 x10^3/uL (0.3-0.8) H 08/12/19 05:38 Eos # (Auto) 0.2 x10^3/uL (0.0-0.2) 08/12/19 05:38 Baso # (Auto) 0.1 X10^3/uL (0.0-0.1) 08/12/19 05:38 Absolute Nucleated RBC 0.0 /100WBC 08/12/19 05:38 Total Counted 100 08/12/19 05:38 Neutrophils % (Manual) 78 % (39-76) H 08/12/19 05:38 Band Neutrophils % 5 % (0-10) 08/12/19 05:38 Lymphocytes % (Manual) 10 % (13-43) L 08/12/19 05:38 Monocytes % (Manual) 7 % (4-9) 08/12/19 05:38 Plt Morphology Comment Normal (NORMAL) 08/12/19 05:38 RBC Morphology Normal (NORMAL) 08/12/19 05:38 Anisocytosis Slight A 08/11/19 17:35 Sodium 129 mmol/L (136-145) L 08/12/19 05:38 Corrected Sodium 130 mmol/L (136-145) L 08/12/19 05:38 Potassium 3.3 mmol/L (3.5-5.1) L 08/12/19 05:38 Chloride 95 mmol/L (98-107) L 08/12/19 05:38 Carbon Dioxide 23.7 mmol/L (21-32) 08/12/19 05:38 BUN 40 mg/dL (7-18) H 08/12/19 05:38 Creatinine 1.78 mg/dL (0.55-1.02) H 08/12/19 05:38 Est GFR (MDRD) Af Amer 35 (>60) L 08/12/19 05:38 Est GFR (MDRD) Non-Af 29 (>60) L 08/12/19 05:38 Glucose 161 mg/dL (65-99) H 08/12/19 05:38 POC Glucose (mg/dL) 172 mg/dL (65-99) H 08/12/19 05:31 Lactic Acid 1.5 mmol/L (0.4-2.0) 08/12/19 01:00 Calcium 8.2 mg/dL (8.5-10.1) L 08/12/19 05:38 Corrected Calcium 9.6 mg/dL (8.5-10.1) 08/12/19 05:38 Total Bilirubin 0.40 mg/dL (0.2-1.0) 08/12/19 05:38 AST 13 Units/L (15-37) L 08/12/19 05:38 ALT 9 Units/L (12-78) L 08/12/19 05:38 Alkaline Phosphatase 139 Units/L (46-116) H 08/12/19 05:38 Troponin I < 0.02 ng/mL (0-1.5) 08/11/19 17:35 Total Protein 5.6 g/dL (6.4-8.2) L 08/12/19 05:38 Albumin 2.2 g/dL (3.4-5.0) L 08/12/19 05:38 Globulin 3.4 g/dL (2.5-4.5) 08/12/19 05:38 Albumin/Globulin Ratio 0.6 Ratio (1.1-2.1) L 08/12/19 05:38 Lipase 53 Units/L (73-393) L 08/11/19 17:35 Plan (1) Dehydration: Status: Acute Plan: IVF, will get labs to evaluate. F/u results. (2) Weakness: Status: Acute (3) Acute renal failure: Status: Acute Plan: IVF, avoid nephrotoxic agents. (4) Diarrhea: Status: Acute Plan: Will get stool cultures. (5) Leukocytosis: Status: Acute (6) Acute pneumonia: Status: Acute Plan: WILI pneumonia, continue
[2019-08-12 11:10] LABS: BILIRUBIN,URINE NEGATIVE (NEGATIVE); BLOOD/HEMOGLOBIN,URINE 3+ (NEGATIVE); GLUCOSE, URINE NEGATIVE (NEGATIVE); KETONES,URINE 1+ (NEGATIVE); LEUKOCYTE ESTERASE ,URINE 1+ (NEGATIVE); NITRITES,URINE NEGATIVE (NEGATIVE); PROTEIN,URINE 2+ (NEGATIVE); UROBILINOGEN,URINE NORMAL (NORMAL)
--- NOTE | 2019-08-12 11:13 | CT ---
HISTORYWeakness, dehydrationSTUDYABDOMEN/PELVIS W/O CONTechnique: Axial noncontrast images with coronal and sagittal reformats. Dose reduction procedures were used with mA/kv adjusted for body size. THIS EXAMINATION IS LIMITED DUE TO THE LACK OF INTRAVENOUS AND ORAL CONTRAST. The examination was performed in this manner at the sole discretion of the ordering caregiver and without input from Radiology.[id number] lung bases are clear. The liver, spleen, adrenal glands, an d pancreas are within normal limits only to the limitations of an unenhanced examination. The patient is status post cholecystectomy. The kidneys are unobstructed and without stones. No ureteral calculi are identified. Calcific atherosclerotic change is present in a nondilated abdominal aorta. No intra peritoneal or retroperitoneal lymphadenopathy of significance is identified. There is barriga colonic inv olvement of the colon with transmural thickening with associated fairly significant pericolonic infla mmation and some pericolonic fluid. Findings are consistent with an acute colitis which could be infl ammatory or infectious in origin. Ischemic colitis felt less likely due to the distribution. Examinat ion of the pelvis demonstrated no evidence for pelvic masses, pelvic lymphadenopathy, or pelvic fluid . No bladder abnormality is identified. No lytic or blastic skeletal lesions of significance are iden tified.IMPRESSIONSevere barriga colonic involvement with transmural thickening, significant pericolonic i nflammation and fluid all of which is consistent with a relatively severe acute colitis which could b e infectious or inflammatory in origin. Ischemic colitis felt less likely due to the distribution.Romy ctronically signed by: CLARISSE DOMINGUEZ (Aug 12, 2019 11:11:40)
[2019-08-12 11:20] LABS: AMORPHOUS SEDIMENT,UR 2+ /HPF (NEGATIVE); APPEARANCE,URINE HAZY (CLEAR); BACTERIA,URINE TRACE /HPF (NEGATIVE); COLOR,URINE YELLOW (YELLOW); SQUAMOUS EPITHELIAL CELL,UR RARE /HPF (NEGATIVE)
[2019-08-12] MEDS ORDERED: VANCOMYCIN HCL PO SCH (12:00)
[2019-08-12] MEDS ORDERED: CULTURELLE PRO-WELL PROBIOTIC CAP PO SCH (17:00)
[2019-08-12] MEDS: HumuLIN R SUBCUT PRN (20:37)
[2019-08-12] MEDS: VANCOMYCIN HCL PO SCH (20:37)
[2019-08-13] MEDS: FLAGYL IV PREMIX 500 MG BAG 500 MG/100 ML BAG IV SCH ×3 (02:12→16:00)
[2019-08-13] MEDS: NS 1000 ML 1,000 ML IV SCH ×2 (02:12→06:21)
[2019-08-13 06:31] LABS: BASOPHILS % (AUTO) 0.1 % (0.2-1.0); EOSINOPHILS # (AUTO) 0.2 x10^3/uL (0.0-0.2); EOSINOPHILS % (AUTO) 1.2 % (0.9-2.9); HEMOGLOBIN 12.2 g/dL (12.0-16.0); LYMPHOCYTES # (AUTO) 0.9 X10^3/uL (1.3-2.9); LYMPHOCYTES % (AUTO) 5.9 % (21.0-51.0); MEAN CORPUSCULAR HEMOGLOBIN 31.3 pg (27.0-34.0); MEAN CORPUSCULAR HGB CONC 33.9 g/dL (33.0-35.0); MEAN CORPUSCULAR VOLUME 92.5 fL (80.0-100.0); MEAN PLATELET VOLUME 8.2 fL (7.4-11.0); MONOCYTES # (AUTO) 1.2 x10^3/uL (0.3-0.8); MONOCYTES % (AUTO) 7.9 % (0.0-13.0); NEUTROPHILS # (AUTO) 12.4 x10^3/uL (2.2-4.8); NEUTROPHILS % (AUTO) 84.9 % (42.0-75.0); PLATELET COUNT 273 X10^3/uL (150.0-450.0); RED BLOOD COUNT 3.89 X10^6/uL (3.5-5.4); WHITE BLOOD COUNT 14.6 X10^3/uL (3.6-10.0)
[2019-08-13 06:45] LABS: ALBUMIN 2.1 g/dL (3.4-5.0); CALCIUM 8.2 mg/dL (8.5-10.1); CARBON DIOXIDE 21.2 mmol/L (21-32); COR CA(FOR HYPOALB) 9.7 mg/dL (8.5-10.1); CREATININE 1.2 mg/dL (0.55-1.02); MAGNESIUM 1.4 mg/dL (1.7-2.9); PHOSPHORUS 2.7 mg/dL (2.6-4.7); TOTAL PROTEIN 5.3 g/dL (6.4-8.2)
[2019-08-13 07:15] LABS: BAND NEUTROPHILS % 5 % (0-10); PLATELET MORPHOLOGY COMMENT NORMAL (NORMAL)
[2019-08-13] MEDS ORDERED: KLOR-CON PO PRN (07:34)
[2019-08-13] MEDS ORDERED: K-DUR TAB 20 MEQ PO PRN (07:34)
[2019-08-13] MEDS ORDERED: POTASSIUM CHLORIDE LIQ 20 MEQ UDC PO PRN (07:34)
[2019-08-13] MEDS ORDERED: MICRO K EXTEN CAP 10 MEQ PO PRN (07:34)
[2019-08-13] MEDS: ROCEPHIN VIAL 1 GRAM 1 G in NS 100 ML IV + SPIKE MINIBAG* 100 ML IV SCH (08:58)
[2019-08-13] MEDS: VANCOMYCIN HCL PO SCH ×2 (08:58→20:47)
[2019-08-13 09:33] LABS: CKMB % 5.6 % (<4); CREATINE KINASE 18 Units/L (26-192); CREATINE KINASE MB < 1.0 ng/mL (0-4.0); TROPONIN I < 0.02 ng/mL (0-1.5)
[2019-08-13] MEDS: VSL#3 PO SCH (10:15)
[2019-08-13] MEDS: LOVENOX INJ 40 MG SYR SC SCH (12:00)
[2019-08-13] MEDS: MAGNESIUM SULFATE 1 GRAM/100 mL PREMIX 1 GM/100 ML BAG IV PRN ×3 (13:30→17:00)
[2019-08-13] MEDS ORDERED: MAALOX or MYLANTA PO PRN (18:25)
[2019-08-13] MEDS: HumuLIN R SUBCUT PRN (20:47)
--- NOTE | 2019-08-13 21:04 | PCM.PROG ---
Progress Note Progress Note for Day of Date of Exam: 08/13/19 Subjective Subjective: Pt is a 84 yo f admitted for WILI pneumonia, ARF, Dehydration, Generalized weakness. She is sitting up in bed. She did tolerate more po intake, eating her breakfast this morning. Will advance diet to diabetic diet. She does report still having some loose stools. Her stools were positive for C. diff. and CTAP:severe pancolitis. Will treat with oral vancomycin and flagyl. Her wbc is trending down and her renal function is improving:Wbc:21.6>18.8>14.6, Cr:2.18>1.78>1.20, CXR: mild cardiomegaly w/o CHF, hyperinflation c/w COPD, Patchy WILI infiltrate likely bronchopneumonia, treated w/ Rocephin. Continue to monitor and follow up lab results in morning. Past Medical Family Social History Past Med/Fam/Surg Hx: No changes since H&P Allergies: Allergies Sulfa (Sulfonamide Antibiotics) [SULFA] Allergy (Verified 08/11/19 17:06) Review of Systems ROS: No change since H&P Vital Signs and I&O's Vital Signs: Temperature 99.5 F Pulse Rate [Left Brachial] 85 Pulse Rate [Right Brachial] 89 Respiratory Rate 20 Blood Pressure [Right Arm] 193/80 Blood Pressure [Left Arm] 152/70 O2 Sat by Pulse Oximetry 97 Intake and Output: Intake & Output 08/10/19 08/11/19 08/12/19 08/13/19 23:59 23:59 23:59 23:59 Intake Total 1295 / 1295 2014 3470 / 3470 Balance 1295 / 1295 2014 3470 / 3470 Physical Exam Oriented: Normal Eyes: Normal Ear: Normal Nose: Normal Throat: Normal Respiratory: Normal Cardiovascular: Normal : Normal Auscultation: Bowel Sounds: Normal Tenderness: Guarding Skin: Normal Musculoskeletal: Normal Psychiatric: Normal Mood Description: Calm Speech Pattern: Clear and Appropriate Laboratory and Diagnostics Result Diagrams: 08/13/19 05:31 08/13/19 05:31 Labs: 08/12/19 09:00 Stool Stool Culture - Preliminary 08/12/19 09:00 Stool - Final 08/11/19 17:42 Blood Blood Culture - Preliminary 08/11/19 17:35 Blood Blood Culture - Preliminary Laboratory WBC 14.6 X10^3/uL (3.6-10.0) H 08/13/19 05:31 RBC 3.89 X10^6/uL (3.5-5.4) 08/13/19 05:31 Hgb 12.2 g/dL (12.0-16.0) 08/13/19 05:31 Hct 36.0 % (36.0-47.0) 08/13/19 05:31 MCV 92.5 fL (80.0-100.0) 08/13/19 05:31 MCH 31.3 pg (27.0-34.0) 08/13/19 05:31 MCHC 33.9 g/dL (33.0-35.0) 08/13/19 05:31 RDW 17.0 % (11.6-16.5) H 08/13/19 05:31 Plt Count 273 X10^3/uL (150.0-450.0) 08/13/19 05:31 Plt Count Comment Adequate (ADEQUATE) 08/13/19 05:31 MPV 8.2 fL (7.4-11.0) 08/13/19 05:31 Neut % (Auto) 84.9 % (42.0-75.0) H 08/13/19 05:31 Lymph % (Auto) 5.9 % (21.0-51.0) L 08/13/19 05:31 [place] % (Auto) 7.9 % (0.0-13.0) 08/13/19 05:31 Eos % (Auto) 1.2 % (0.9-2.9) 08/13/19 05:31 Baso % (Auto) 0.1 % (0.2-1.0) L 08/13/19 05:31 Neut # (Auto) 12.4 x10^3/uL (2.2-4.8) H 08/13/19 05:31 Lymph # (Auto) 0.9 X10^3/uL (1.3-2.9) L 08/13/19 05:31 [place] # (Auto) 1.2 x10^3/uL (0.3-0.8) H 08/13/19 05:31 Eos # (Auto) 0.2 x10^3/uL (0.0-0.2) 08/13/19 05:31 Baso # (Auto) 0.0 X10^3/uL (0.0-0.1) 08/13/19 05:31 Absolute Nucleated RBC 0.0 /100WBC 08/13/19 05:31 Total Counted 100 08/13/19 05:31 Neutrophils % (Manual) 79 % (39-76) H 08/13/19 05:31 Band Neutrophils % 5 % (0-10) 08/13/19 05:31 Lymphocytes % (Manual) 13 % (13-43) 08/13/19 05:31 Monocytes % (Manual) 1 % (4-9) L 08/13/19 05:31 Plt Morphology Comment Normal (NORMAL) 08/13/19 05:31 RBC Morphology Normal (NORMAL) 08/13/19 05:31 Anisocytosis Slight A 08/11/19 17:35 Sodium 131 mmol/L (136-145) L 08/13/19 05:31 Corrected Sodium 133 mmol/L (136-145) L 08/13/19 05:31 Potassium 3.0 mmol/L (3.5-5.1) L* 08/13/19 05:31 Chloride 97 mmol/L (98-107) L 08/13/19 05:31 Carbon Dioxide 21.2 mmol/L (21-32) 08/13/19 05:31 BUN 34 mg/dL (7-18) H 08/13/19 05:31 Creatinine 1.20 mg/dL (0.55-1.02) H 08/13/19 05:31 Est GFR (MDRD) Af Amer 55 (>60) L 08/13/19 05:31 Est GFR (MDRD) Non-Af 46 (>60) L 08/13/19 05:31 Glucose 167 mg/dL (65-99) H 08/13/19 05:31 POC Glucose (mg/dL) 287 mg/dL (65-99) H 08/13/19 19:32 Lactic Acid 1.5 mmol/L (0.4-2.0) 08/12/19 01:00 Calcium 8.2 mg/dL (8.5-10.1) L 08/13/19 05:31 Corrected Calcium 9.7 mg/dL (8.5-10.1) 08/13/19 05:31 Phosphorus 2.7 mg/dL (2.6-4.7) 08/13/19 05:31 Magnesium 1.4 mg/dL (1.7-2.9) L 08/13/19 05:31 Total Bilirubin 0.40 mg/dL (0.2-1.0) 08/13/19 05:31 AST 12 Units/L (15-37) L 08/13/19 05:31 ALT 14 Units/L (12-78) 08/13/19 05:31 Alkaline Phosphatase 132 Units/L (46-116) H 08/13/19 05:31 Creatine Kinase 18 Units/L (26-192) L 08/13/19 05:31 CK-MB (CK-2) < 1.0 ng/mL (0-4.0) 08/13/19 05:31 CK/CKMB % Calc 5.6 % (<4) 08/13/19 05:31 Troponin I < 0.02 ng/mL (0-1.5) 08/13/19 05:31 Total Protein 5.3 g/dL (6.4-8.2) L 08/13/19 05:31 Albumin 2.1 g/dL (3.4-5.0) L 08/13/19 05:31 Globulin 3.2 g/dL (2.5-4.5) 08/13/19 05:31 Albumin/Globulin Ratio 0.7 Ratio (1.1-2.1) L 08/13/19 05:31 Lipase 53 Units/L (73-393) L 08/11/19 17:35 Specimen Type Catherized urine 08/12/19 10:50 Urine Color Yellow (YELLOW) 08/12/19 10:50 Urine Appearance Hazy (CLEAR) 08/12/19 10:50 Urine pH 5.0 (5.0 - 8.0) 08/12/19 10:50 Ur Specific [place] 1.020 (1.000-1.030) 08/12/19 10:50 Urine Protein 2+ (NEGATIVE) 08/12/19 10:50 Urine Glucose (UA) Negative (NEGATIVE) 08/12/19 10:50 Urine Ketones 1+ (NEGATIVE) 08/12/19 10:50 Urine Occult Blood 3+ (NEGATIVE) 08/12/19 10:50 Urine Nitrite Negative (NEGATIVE) 08/12/19 10:50 Urine Bilirubin Negative (NEGATIVE) 08/12/19 10:50 Urine Urobilinogen Normal (NORMAL) 08/12/19 10:50 Ur Leukocyte Esterase 1+ (NEGATIVE) 08/12/19 10:50 Urine RBC 5-10 /HPF (0-3) A 08/12/19 10:50 Urine WBC 3-5 /HPF (0-5) 08/12/19 10:50 Ur Squamous Epith Cells Rare /HPF (NEGATIVE) 08/12/19 10:50 Amorphous Sediment 2+ /HPF (NEGATIVE) 08/12/19 10:50 Urine Bacteria Trace /HPF (NEGATIVE) 08/12/19 10:50 Ur Culture Indicated? No/not indicated 08/12/19 10:50 Stl C. diff Tox B Gene Positive (NEGATIVE) A 08/12/19 09:00 Stl C. diff [id number] Negative (NEGATIVE) 08/12/19 09:00 C. difficile Toxin A&B Positive (NEGATIVE) A 08/12/19 09:00 Plan (1) Clostridioides difficile infection: Status: Acute Plan: Vanc+Flagyl (2) Pancolitis: Status: Acute (3) Dehydration: Status: Acute Plan: IVF (4) Weakness: Status: Acute (5) Acute renal failure: Status: Acute Plan: IVF, avoid nephrotoxic agents. (6) Diarrhea: Status: Acute (7) Leukocytosis: Status: Acute (8) Acute pneumonia: Status: Acute Plan: WILI pneumonia, continue abx (9) Hypokalemia: Status: Acute Plan: Replete per protocol
[2019-08-13] MEDS: FLAGYL TAB 500 MG PO SCH (21:10)
[2019-08-14] MEDS: FLAGYL TAB 500 MG PO SCH ×3 (05:31→21:00)
[2019-08-14] MEDS: HumuLIN R SUBCUT PRN ×3 (05:37→21:01)
[2019-08-14] MEDS: TYLENOL 325 MG TAB PO PRN (05:47)
[2019-08-14 06:49] LABS: BASOPHILS % (AUTO) 0.3 % (0.2-1.0); EOSINOPHILS # (AUTO) 0.1 x10^3/uL (0.0-0.2); EOSINOPHILS % (AUTO) 1.2 % (0.9-2.9); HEMATOCRIT 36.7 % (36.0-47.0); HEMOGLOBIN 12.5 g/dL (12.0-16.0); LYMPHOCYTES # (AUTO) 0.9 X10^3/uL (1.3-2.9); LYMPHOCYTES % (AUTO) 7.4 % (21.0-51.0); MEAN CORPUSCULAR HEMOGLOBIN 31.2 pg (27.0-34.0); MEAN CORPUSCULAR HGB CONC 33.9 g/dL (33.0-35.0); MEAN PLATELET VOLUME 7.8 fL (7.4-11.0); MONOCYTES # (AUTO) 0.7 x10^3/uL (0.3-0.8); MONOCYTES % (AUTO) 5.8 % (0.0-13.0); NEUTROPHILS # (AUTO) 10.8 x10^3/uL (2.2-4.8); NEUTROPHILS % (AUTO) 85.3 % (42.0-75.0); PLATELET COUNT 286 X10^3/uL (150.0-450.0); RED BLOOD COUNT 3.99 X10^6/uL (3.5-5.4); RED CELL DISTRIBUTION WIDTH 16.8 % (11.6-16.5); WHITE BLOOD COUNT 12.6 X10^3/uL (3.6-10.0)
[2019-08-14 07:10] LABS: ALANINE AMINOTRANSFERASE 17 Units/L (12-78); ALKALINE PHOSPHATASE 131 Units/L (46-116); ASPARTATE AMINO TRANSFERASE 12 Units/L (15-37); BLOOD UREA NITROGEN 20 mg/dL (7-18); CARBON DIOXIDE 23.5 mmol/L (21-32); CHLORIDE 95 mmol/L (98-107); COR CA(FOR HYPOALB) 9.6 mg/dL (8.5-10.1); COR NA(FOR HYPERGLY) 130 mmol/L (136-145); CREATININE 0.94 mg/dL (0.55-1.02); MAGNESIUM 1.7 mg/dL (1.7-2.9); SODIUM 128 mmol/L (136-145); TOTAL PROTEIN 5.3 g/dL (6.4-8.2); eGFR NON BLACK RACES > 60 (>60)
[2019-08-14] MEDS ORDERED: MICRO K EXTEN CAP 10 MEQ PO STA (08:20)
[2019-08-14] MEDS: LOVENOX INJ 40 MG SYR SC SCH (08:48)
[2019-08-14] MEDS: VSL#3 PO SCH (08:48)
[2019-08-14] MEDS: THERMOTABS PO SCH ×2 (08:49→20:59)
[2019-08-14] MEDS: VANCOMYCIN HCL PO SCH ×2 (08:49→21:00)
[2019-08-14] MEDS: OMNICEF CAP 300 MG PO SCH ×2 (08:49→21:00)
[2019-08-14] MEDS ORDERED: MICRO K EXTEN CAP 10 MEQ PO SCH (12:00)
--- NOTE | 2019-08-14 19:13 | PCM.PROG ---
Progress Note Progress Note for Day of Date of Exam: 08/14/19 Subjective Subjective: Pt is a 84 yo f admitted for C. diff, Pancolitis, WILI pneumonia, ARF, Dehydration, Generalized weakness. She is sitting up in bed this morning eating breakfast. Her appetite has improved. She still is having some loose stools. Her Na remains mildly low, will increase salt in her diet. Her IV line was infiltrated and was unable to be placed after multiple attempts. She is progressing well and can be continued on oral medications. Abx: PO vancomycin x14d and PO flagyl x 14. Her wbc is trending down and her renal function is improving:Wbc:18.8>14.6>12.6, Cr:1.78>1.20>0.94. Will continue to treat WILI pneumonia with 3 more days of Cefdinir. Continue to monitor and follow up lab results in morning. Past Medical Family Social History Past Med/Fam/Surg Hx: No changes since H&P Allergies: Allergies Sulfa (Sulfonamide Antibiotics) [SULFA] Allergy (Verified 08/11/19 17:06) Review of Systems ROS: No change since H&P Vital Signs and I&O's Vital Signs: Temperature 98.4 F Pulse Rate [Left Brachial] 131 Pulse Rate [Right Brachial] 89 Respiratory Rate 20 Blood Pressure [Right Arm] 193/80 Blood Pressure [Left Arm] 136/82 O2 Sat by Pulse Oximetry 98 Intake and Output: Intake & Output 08/11/19 08/12/19 08/13/19 08/14/19 23:59 23:59 23:59 23:59 Intake Total 1295 / 1295 2014 3470 / 3470 2680 / 2680 Balance 1295 / 1295 2014 3470 / 3470 2680 / 2680 Physical Exam Oriented: Normal Eyes: Normal Ear: Normal Nose: Normal Throat: Normal Respiratory: Normal Cardiovascular: Normal : Normal Auscultation: Bowel Sounds: Normal Palpation: Normal Tenderness: Mild Skin: Normal Musculoskeletal: Normal Psychiatric: Normal Mood Description: Calm Speech Pattern: Clear and Appropriate Laboratory and Diagnostics Result Diagrams: 08/14/19 05:40 08/14/19 15:35 Labs: 08/12/19 09:00 Stool Stool Culture - Final 08/12/19 09:00 Stool - Final 08/11/19 17:42 Blood Blood Culture - Preliminary 08/11/19 17:35 Blood Blood Culture - Preliminary Laboratory WBC 12.6 X10^3/uL (3.6-10.0) H 08/14/19 05:40 RBC 3.99 X10^6/uL (3.5-5.4) 08/14/19 05:40 Hgb 12.5 g/dL (12.0-16.0) 08/14/19 05:40 Hct 36.7 % (36.0-47.0) 08/14/19 05:40 MCV 92.0 fL (80.0-100.0) 08/14/19 05:40 MCH 31.2 pg (27.0-34.0) 08/14/19 05:40 MCHC 33.9 g/dL (33.0-35.0) 08/14/19 05:40 RDW 16.8 % (11.6-16.5) H 08/14/19 05:40 Plt Count 286 X10^3/uL (150.0-450.0) 08/14/19 05:40 Plt Count Comment Adequate (ADEQUATE) 08/13/19 05:31 MPV 7.8 fL (7.4-11.0) 08/14/19 05:40 Neut % (Auto) 85.3 % (42.0-75.0) H 08/14/19 05:40 Lymph % (Auto) 7.4 % (21.0-51.0) L 08/14/19 05:40 [place] % (Auto) 5.8 % (0.0-13.0) 08/14/19 05:40 Eos % (Auto) 1.2 % (0.9-2.9) 08/14/19 05:40 Baso % (Auto) 0.3 % (0.2-1.0) 08/14/19 05:40 Neut # (Auto) 10.8 x10^3/uL (2.2-4.8) H 08/14/19 05:40 Lymph # (Auto) 0.9 X10^3/uL (1.3-2.9) L 08/14/19 05:40 [place] # (Auto) 0.7 x10^3/uL (0.3-0.8) 08/14/19 05:40 Eos # (Auto) 0.1 x10^3/uL (0.0-0.2) 08/14/19 05:40 Baso # (Auto) 0.0 X10^3/uL (0.0-0.1) 08/14/19 05:40 Absolute Nucleated RBC 0.0 /100WBC 08/14/19 05:40 Total Counted 100 08/13/19 05:31 Neutrophils % (Manual) 79 % (39-76) H 08/13/19 05:31 Band Neutrophils % 5 % (0-10) 08/13/19 05:31 Lymphocytes % (Manual) 13 % (13-43) 08/13/19 05:31 Monocytes % (Manual) 1 % (4-9) L 08/13/19 05:31 Plt Morphology Comment Normal (NORMAL) 08/13/19 05:31 RBC Morphology Normal (NORMAL) 08/13/19 05:31 Anisocytosis Slight A 08/11/19 17:35 Sodium 128 mmol/L (136-145) L 08/14/19 05:40 Corrected Sodium 130 mmol/L (136-145) L 08/14/19 05:40 Potassium 4.1 mmol/L (3.5-5.1) 08/14/19 15:35 Chloride 95 mmol/L (98-107) L 08/14/19 05:40 Carbon Dioxide 23.5 mmol/L (21-32) 08/14/19 05:40 BUN 20 mg/dL (7-18) H 08/14/19 05:40 Creatinine 0.94 mg/dL (0.55-1.02) 08/14/19 05:40 Est GFR (MDRD) Af Amer > 60 (>60) 08/14/19 05:40 Est GFR (MDRD) Non-Af > 60 (>60) 08/14/19 05:40 Glucose 182 mg/dL (65-99) H 08/14/19 05:40 POC Glucose (mg/dL) 200 mg/dL (65-99) H 08/14/19 16:39 Lactic Acid 1.5 mmol/L (0.4-2.0) 08/12/19 01:00 Calcium 8.0 mg/dL (8.5-10.1) L 08/14/19 05:40 Corrected Calcium 9.6 mg/dL (8.5-10.1) 08/14/19 05:40 Phosphorus 2.7 mg/dL (2.6-4.7) 08/13/19 05:31 Magnesium 1.7 mg/dL (1.7-2.9) 08/14/19 05:40 Total Bilirubin 0.30 mg/dL (0.2-1.0) 08/14/19 05:40 AST 12 Units/L (15-37) L 08/14/19 05:40 ALT 17 Units/L (12-78) 08/14/19 05:40 Alkaline Phosphatase 131 Units/L (46-116) H 08/14/19 05:40 Creatine Kinase 18 Units/L (26-192) L 08/13/19 05:31 CK-MB (CK-2) < 1.0 ng/mL (0-4.0) 08/13/19 05:31 CK/CKMB % Calc 5.6 % (<4) 08/13/19 05:31 Troponin I < 0.02 ng/mL (0-1.5) 08/13/19 05:31 Total Protein 5.3 g/dL (6.4-8.2) L 08/14/19 05:40 Albumin 2.0 g/dL (3.4-5.0) L 08/14/19 05:40 Globulin 3.3 g/dL (2.5-4.5) 08/14/19 05:40 Albumin/Globulin Ratio 0.6 Ratio (1.1-2.1) L 08/14/19 05:40 Lipase 53 Units/L (73-393) L 08/11/19 17:35 Specimen Type Catherized urine 08/12/19 10:50 Urine Color Yellow (YELLOW) 08/12/19 10:50 Urine Appearance Hazy (CLEAR) 08/12/19 10:50 Urine pH 5.0 (5.0 - 8.0) 08/12/19 10:50 Ur Specific [place] 1.020 (1.000-1.030) 08/12/19 10:50 Urine Protein 2+ (NEGATIVE) 08/12/19 10:50 Urine Glucose (UA) Negative (NEGATIVE) 08/12/19 10:50 Urine Ketones 1+ (NEGATIVE) 08/12/19 10:50 Urine Occult Blood 3+ (NEGATIVE) 08/12/19 10:50 Urine Nitrite Negative (NEGATIVE) 08/12/19 10:50 Urine Bilirubin Negative (NEGATIVE) 08/12/19 10:50 Urine Urobilinogen Normal (NORMAL) 08/12/19 10:50 Ur Leukocyte Esterase 1+ (NEGATIVE) 08/12/19 10:50 Urine RBC 5-10 /HPF (0-3) A 08/12/19 10:50 Urine WBC 3-5 /HPF (0-5) 08/12/19 10:50 Ur Squamous Epith Cells Rare /HPF (NEGATIVE) 08/12/19 10:50 Amorphous Sediment 2+ /HPF (NEGATIVE) 08/12/19 10:50 Urine Bacteria Trace /HPF (NEGATIVE) 08/12/19 10:50 Ur Culture Indicated? No/not indicated 08/12/19 10:50 Stl C. diff Tox B Gene Positive (NEGATIVE) A 08/12/19 09:00 Stl C. diff 027-NAP1-BI Negative (NEGATIVE) 08/12/19 09:00 C. difficile Toxin A&B Positive (NEGATIVE) A 08/12/19 09:00 Plan (1) Clostridioides difficile infection: Status: Acute Plan: Continue Vanc+Flagyl (2) Pancolitis: Status: Acute Plan: Reviewed on CTAP (3) Dehydration: Status: Acute Plan: Tolerating po w/ renal improvement (4) Weakness: Status: Acute (5) Acute renal failure: Status: Acute Plan: Renal improvement (6) Diarrhea: Status: Acute (7) Leukocytosis: Status: Acute (8) Acute pneumonia: Status: Acute Plan: WILI pneumonia, continue abx (9) Hypokalemia: Status: Acute Plan: Replete per protocol
[2019-08-15] MEDS: HumuLIN R SUBCUT PRN (05:37)
[2019-08-15] MEDS: FLAGYL TAB 500 MG PO SCH (05:37)
[2019-08-15] MEDS: TYLENOL 325 MG TAB PO PRN (05:54)
[2019-08-15 06:14] LABS: BASOPHILS # (AUTO) 0.1 X10^3/uL (0.0-0.1); BASOPHILS % (AUTO) 0.4 % (0.2-1.0); EOSINOPHILS # (AUTO) 0.1 x10^3/uL (0.0-0.2); EOSINOPHILS % (AUTO) 0.9 % (0.9-2.9); HEMATOCRIT 37.1 % (36.0-47.0); HEMOGLOBIN 12.7 g/dL (12.0-16.0); LYMPHOCYTES # (AUTO) 1.4 X10^3/uL (1.3-2.9); LYMPHOCYTES % (AUTO) 11.9 % (21.0-51.0); MEAN CORPUSCULAR HEMOGLOBIN 31.4 pg (27.0-34.0); MEAN CORPUSCULAR HGB CONC 34.2 g/dL (33.0-35.0); MEAN PLATELET VOLUME 7.8 fL (7.4-11.0); MONOCYTES # (AUTO) 0.9 x10^3/uL (0.3-0.8); MONOCYTES % (AUTO) 7.4 % (0.0-13.0); NEUTROPHILS # (AUTO) 9.6 x10^3/uL (2.2-4.8); NEUTROPHILS % (AUTO) 79.4 % (42.0-75.0); PLATELET COUNT 323 X10^3/uL (150.0-450.0); RED BLOOD COUNT 4.04 X10^6/uL (3.5-5.4); RED CELL DISTRIBUTION WIDTH 17.1 % (11.6-16.5); WHITE BLOOD COUNT 12.1 X10^3/uL (3.6-10.0)
[2019-08-15 06:29] LABS: ALANINE AMINOTRANSFERASE 17 Units/L (12-78); ALKALINE PHOSPHATASE 122 Units/L (46-116); ASPARTATE AMINO TRANSFERASE 13 Units/L (15-37); BLOOD UREA NITROGEN 16 mg/dL (7-18); CALCIUM 8.1 mg/dL (8.5-10.1); CARBON DIOXIDE 24.1 mmol/L (21-32); CHLORIDE 95 mmol/L (98-107); COR CA(FOR HYPOALB) 9.7 mg/dL (8.5-10.1); COR NA(FOR HYPERGLY) 130 mmol/L (136-145); CREATININE 0.87 mg/dL (0.55-1.02); SODIUM 127 mmol/L (136-145); TOTAL PROTEIN 5.3 g/dL (6.4-8.2); eGFR NON BLACK RACES > 60 (>60)
--- NOTE | 2019-08-15 08:14 | W.DIS.FURT ---
Summary of Discharge Discharge Summary of Date Date of Exam: 08/15/19 Admission Date Date of Admission: 08/11/19 Admission Diagnosis Hospital Course: Pt is a 84 yo f admitted for C. diff, Pancolitis, WILI pneumonia, ARF, Dehydration, Generalized weakness. She was treated in the hospital with oral vancomycin and flagyl. She was also treated Rocephin that was changed to po cefdinir for WILI pneumonia. With IVF and antibiotics, pt significantly improved, her wbc trending down and renal function returning to baseline. The frequency of her loose stools declined and she began tolerating po intake again, w/ improvement in her strength. She will continue antibiotic course at home, and is under care of home health. Pt was discharged in stable condition with instructions to follow up with her pcp in 1 week. Vital Signs: Vital Signs (72 hours) 08/12/19 12:00 08/12/19 16:00 08/12/19 20:00 Temperature 99 F 98.7 F 98.0 F Pulse Rate [Left Brachial] Pulse Rate [Right Brachial] 74 82 98 H Respiratory Rate 20 20 20 Blood Pressure [Left Arm] Blood Pressure [Right Arm] 173/72 132/65 118/57 O2 Sat by Pulse Oximetry 94 L 100 100 08/13/19 00:00 08/13/19 03:59 08/13/19 08:00 Temperature 97.5 F L 98 F 98.2 F Pulse Rate [Left Brachial] Pulse Rate [Right Brachial] 90 81 89 Respiratory Rate 20 20 24 Blood Pressure [Left Arm] Blood Pressure [Right Arm] 172/72 163/71 193/80 O2 Sat by Pulse Oximetry 98 98 08/13/19 12:00 08/13/19 16:00 08/13/19 20:00 Temperature 98.7 F 99.2 F 99.5 F Pulse Rate [Left Brachial] 79 94 H 85 Pulse Rate [Right Brachial] Respiratory Rate 18 18 20 Blood Pressure [Left Arm] 157/59 154/67 152/70 Blood Pressure [Right Arm] O2 Sat by Pulse Oximetry 96 97 97 08/14/19 00:00 08/14/19 04:00 08/14/19 05:47 Temperature 98.9 F 99.2 F Pulse Rate [Left Brachial] 92 H 91 H Pulse Rate [Right Brachial] Respiratory Rate 20 18 18 Blood Pressure [Left Arm] 164/72 166/72 Blood Pressure [Right Arm] O2 Sat by Pulse Oximetry 99 97 08/14/19 06:43 08/14/19 08:00 08/14/19 12:00 Temperature 98.5 F 98.1 F Pulse Rate [Left Brachial] 122 H 85 Pulse Rate [Right Brachial] Respiratory Rate 18 20 20 Blood Pressure [Left Arm] 133/61 168/72 Blood Pressure [Right Arm] O2 Sat by Pulse Oximetry 98 97 08/14/19 16:00 08/14/19 20:00 08/14/19 23:55 Temperature 98.4 F 98.9 F 98.8 F Pulse Rate [Left Brachial] 131 H 85 88 Pulse Rate [Right Brachial] Respiratory Rate 20 22 18 Blood Pressure [Left Arm] 136/82 172/77 168/74 Blood Pressure [Right Arm] O2 Sat by Pulse Oximetry 98 99 100 08/15/19 04:00 08/15/19 05:54 08/15/19 06:54 Temperature 98.3 F Pulse Rate [Left Brachial] 123 H Pulse Rate [Right Brachial] Respiratory Rate 20 20 18 Blood Pressure [Left Arm] 182/85 Blood Pressure [Right Arm] O2 Sat by Pulse Oximetry 98 Labs: Laboratory Last Values WBC 12.1 X10^3/uL (3.6-10.0) H 08/15/19 05:55 RBC 4.04 X10^6/uL (3.5-5.4) 08/15/19 05:55 Hgb 12.7 g/dL (12.0-16.0) 08/15/19 05:55 Hct 37.1 % (36.0-47.0) 08/15/19 05:55 MCV 92.0 fL (80.0-100.0) 08/15/19 05:55 MCH 31.4 pg (27.0-34.0) 08/15/19 05:55 MCHC 34.2 g/dL (33.0-35.0) 08/15/19 05:55 RDW 17.1 % (11.6-16.5) H 08/15/19 05:55 Plt Count 323 X10^3/uL (150.0-450.0) 08/15/19 05:55 Plt Count Comment Adequate (ADEQUATE) 08/13/19 05:31 MPV 7.8 fL (7.4-11.0) 08/15/19 05:55 Neut % (Auto) 79.4 % (42.0-75.0) H 08/15/19 05:55 Lymph % (Auto) 11.9 % (21.0-51.0) L 08/15/19 05:55 [place] % (Auto) 7.4 % (0.0-13.0) 08/15/19 05:55 Eos % (Auto) 0.9 % (0.9-2.9) 08/15/19 05:55 Baso % (Auto) 0.4 % (0.2-1.0) 08/15/19 05:55 Neut # (Auto) 9.6 x10^3/uL (2.2-4.8) H 08/15/19 05:55 Lymph # (Auto) 1.4 X10^3/uL (1.3-2.9) 08/15/19 05:55 [place] # (Auto) 0.9 x10^3/uL (0.3-0.8) H 08/15/19 05:55 Eos # (Auto) 0.1 x10^3/uL (0.0-0.2) 08/15/19 05:55 Baso # (Auto) 0.1 X10^3/uL (0.0-0.1) 08/15/19 05:55 Absolute Nucleated RBC 0.0 /100WBC 08/15/19 05:55 Total Counted 100 08/13/19 05:31 Neutrophils % (Manual) 79 % (39-76) H 08/13/19 05:31 Band Neutrophils % 5 % (0-10) 08/13/19 05:31 Lymphocytes % (Manual) 13 % (13-43) 08/13/19 05:31 Monocytes % (Manual) 1 % (4-9) L 08/13/19 05:31 Plt Morphology Comment Normal (NORMAL) 08/13/19 05:31 RBC Morphology Normal (NORMAL) 08/13/19 05:31 Anisocytosis Slight A 08/11/19 17:35 Sodium 127 mmol/L (136-145) L 08/15/19 05:50 Corrected Sodium 130 mmol/L (136-145) L 08/15/19 05:50 Potassium 4.1 mmol/L (3.5-5.1) 08/15/19 05:50 Chloride 95 mmol/L (98-107) L 08/15/19 05:50 Carbon Dioxide 24.1 mmol/L (21-32) 08/15/19 05:50 BUN 16 mg/dL (7-18) 08/15/19 05:50 Creatinine 0.87 mg/dL (0.55-1.02) 08/15/19 05:50 Est GFR (MDRD) Af Amer > 60 (>60) 08/15/19 05:50 Est GFR (MDRD) Non-Af > 60 (>60) 08/15/19 05:50 Glucose 234 mg/dL (65-99) H 08/15/19 05:50 POC Glucose (mg/dL) 217 mg/dL (65-99) H 08/15/19 05:35 Lactic Acid 1.5 mmol/L (0.4-2.0) 08/12/19 01:00 Calcium 8.1 mg/dL (8.5-10.1) L 08/15/19 05:50 Corrected Calcium 9.7 mg/dL (8.5-10.1) 08/15/19 05:50 Phosphorus 2.7 mg/dL (2.6-4.7) 08/13/19 05:31 Magnesium 1.7 mg/dL (1.7-2.9) 08/14/19 05:40 Total Bilirubin 0.30 mg/dL (0.2-1.0) 08/15/19 05:50 AST 13 Units/L (15-37) L 08/15/19 05:50 ALT 17 Units/L (12-78) 08/15/19 05:50 Alkaline Phosphatase 122 Units/L (46-116) H 08/15/19 05:50 Creatine Kinase 18 Units/L (26-192) L 08/13/19 05:31 CK-MB (CK-2) < 1.0 ng/mL (0-4.0) 08/13/19 05:31 CK/CKMB % Calc 5.6 % (<4) 08/13/19 05:31 Troponin I < 0.02 ng/mL (0-1.5) 08/13/19 05:31 Total Protein 5.3 g/dL (6.4-8.2) L 08/15/19 05:50 Albumin 2.0 g/dL (3.4-5.0) L 08/15/19 05:50 Globulin 3.3 g/dL (2.5-4.5) 08/15/19 05:50 Albumin/Globulin Ratio 0.6 Ratio (1.1-2.1) L 08/15/19 05:50 Lipase 53 Units/L (73-393) L 08/11/19 17:35 Specimen Type Catherized urine 08/12/19 10:50 Urine Color Yellow (YELLOW) 08/12/19 10:50 Urine Appearance Hazy (CLEAR) 08/12/19 10:50 Urine pH 5.0 (5.0 - 8.0) 08/12/19 10:50 Ur Specific [place] 1.020 (1.000-1.030) 08/12/19 10:50 Urine Protein 2+ (NEGATIVE) 08/12/19 10:50 Urine Glucose (UA) Negative (NEGATIVE) 08/12/19 10:50 Urine Ketones 1+ (NEGATIVE) 08/12/19 10:50 Urine Occult Blood 3+ (NEGATIVE) 08/12/19 10:50 Urine Nitrite Negative (NEGATIVE) 08/12/19 10:50 Urine Bilirubin Negative (NEGATIVE) 08/12/19 10:50 Urine Urobilinogen Normal (NORMAL) 08/12/19 10:50 Ur Leukocyte Esterase 1+ (NEGATIVE) 08/12/19 10:50 Urine RBC 5-10 /HPF (0-3) A 08/12/19 10:50 Urine WBC 3-5 /HPF (0-5) 08/12/19 10:50 Ur Squamous Epith Cells Rare /HPF (NEGATIVE) 08/12/19 10:50 Amorphous Sediment 2+ /HPF (NEGATIVE) 08/12/19 10:50 Urine Bacteria Trace /HPF (NEGATIVE) 08/12/19 10:50 Ur Culture Indicated? No/not indicated 08/12/19 10:50 Stl C. diff Tox B Gene Positive (NEGATIVE) A 08/12/19 09:00 Stl C. diff 027-NAP1-BI Negative (NEGATIVE) 08/12/19 09:00 C. difficile Toxin A&B Positive (NEGATIVE) A 08/12/19 09:00 Reason For Visit: PNEUMONIA,WEAKNESS,DEHYDRATION,HYPONATREMIA Discharge Date Discharge Date: 08/15/19 Discharge Diagnosis All Active Problems (Updated 08/13/19 @ 21:17 by Rich Jackson) Hypokalemia (Acute) Clostridioides difficile infection (Acute) Pancolitis (Acute) Acute pneumonia (Acute) Leukocytosis (Acute) Diarrhea (Acute) Acute renal failure (Acute) Dehydration (Acute) Nausea and vomiting (Acute) Weakness (Acute) Diabetes mellitus, type 2 (Chronic) Essential hypertension (Chronic) Hypothyroidism (Chronic) Degenerative disc disease (Chronic) History of benign essential tremor (Chronic) History of thyroidectomy (Chronic) Depression (Chronic) Hyperlipidemia (Chronic) Sleep apnea (Chronic) Fibromyalgia (Chronic) Osteoarthritis (Acute) Laceration of lower leg, left (Acute) Contusion of left patella (Acute) Headache (Acute) Chest pain (Acute) Headache (Acute) Acute UTI (Acute) Intractable abdominal pain (Acute) Chest pain in adult (Acute) Pleural effusion, left (Acute) Cardiomegaly (Acute) Diabetes mellitus type 1, uncontrolled (Acute) Interstitial edema (Acute) Chronic kidney disease (CKD) (Acute) Cardiac arrhythmia (Acute) Blister of left lower leg (Acute) Weakness (Acute) Plan of Treatment: Continue with present treatment and follow up plan. Pt is to keep follow up appointment as instructed and take medications as ordered. Discharge Medications Discharge Medications: Sulfa (Sulfonamide Antibiotics) [SULFA] Allergy (Verified 08/11/19 17:06) CONTINUE taking the following medications levothyroxine [Synthroid] 25 mcg PO DAILY 08/11/19 [History] New Prescriptions cefdinir 300 mg PO BID 3 Days #6 cap 08/15/19 [Rx] lactobacillus combination no.4 [Probiotic] 3,000 mmu cells PO ONCE 30 Days #30 cap 08/15/19 [Rx] metronidazole [Flagyl] 500 mg PO TID 12 Days #36 tab 08/15/19 [Rx] valsartan 80 mg PO DAILY #30 tab 08/15/19 [Rx] vancomycin 250 mg PO BID 12 Days #24 cap 08/15/19 [Rx] Follow up and Referral Follow Up: 1 Week Discharge Disposition Discharge Disposition: Home Discharge Condition: Stable
[2019-08-15] MEDS: LOVENOX INJ 40 MG SYR SC SCH (08:39)
[2019-08-15] MEDS: VANCOMYCIN HCL PO SCH (08:40)
[2019-08-15] MEDS: VSL#3 PO SCH (08:40)
[2019-08-15] MEDS: THERMOTABS PO SCH (08:40)
[2019-08-15] MEDS: OMNICEF CAP 300 MG PO SCH (08:40)
[2019-08-15 09:01] VITALS: BP 137/60
== END 2019-08-15 10:10 | disposition home or self-care (01) | DRG 194 ==
LOC: MED/SURG → OBSVTOIN 17:03
PROVIDERS: ADMIT Family Medicine; ATTEND Family Medicine
DX: R19.7 Diarrhea, unspecified; A04.72 Enterocolitis due to Clostridium difficile, not specified as recurrent; I10 Essential (primary) hypertension; E86.0 Dehydration; K52.89 Other specified noninfective gastroenteritis and colitis; J44.9 Chronic obstructive pulmonary disease, unspecified; E11.65 Type 2 diabetes mellitus with hyperglycemia; E03.8 Other specified hypothyroidism; R06.2 Wheezing; R11.2 Nausea with vomiting, unspecified; E87.6 Hypokalemia; L89.152 Pressure ulcer of sacral region, stage 2; N17.8 Other acute kidney failure; J18.9 Pneumonia, unspecified organism; D72.828 Other elevated white blood cell count; R26.89 Other abnormalities of gait and mobility
CPT/HCPCS: 36415; 71010; 71045; 74000; 74018; 74176; 80053; 81001; 82550; 82553; 83605; 83690; 83735; 84100; 84132; 84484; 85025; 87040; 87045; 87324; 87427; 87449; 87493; 87899; 93005; 97116; 97162; 97166; 97530; 97535; A4222; J0696; J1650; J1815; J3475; J3490; J7030; J7050; S0030